=== PATIENT | female | born 1945 | race Caucasian/White ===

== ENCOUNTER 2016-09-11 14:04 | Inpatient (IN) | payer OTHER ==
[~2016-09-11] VITALS: Ht 167.6 cm; Wt 85.6 kg
[~2016-09-11 14:04] MED LIST: ACIFEX; ALBUTEROL2.5 MG/3 M IN; CARDIZEM C1 PO; FLORADIL; HYDRALAZINE HCL10 MG PO; PREVASTATIN; SINGULAIR10 MG PO; SYNTHROID25 MCG PO; SYNTHROID50 MCG PO
--- NOTE | 2016-09-11 16:32 | ED ORDER SUMMARY ---
..... Patient: LATISHA BARKSDALE I OrderSheet [facility] VisitID: [id number] [address] [place] [address] 71y, F Registration Date/Time: 09/11/2016 ORDER SHEET Weight: 81.6 kg (stated) Allergies: Beta blockers-severe weakness , Demerol, LIsinopril, Norvasc, Sulfa Drugs GENERAL ORDERS: Chest 2V Urgent (14:21 09/11/2016 DDean R.N. per protocol) (Ack 14:23 LMuller) (15:02 DDean R.N.) CBC w Diff Urgent (14:46 09/11/2016 Byron NATION) (Ack 14:51 LMuller) (15:38 DDean R.N.) CMP Urgent (14:46 09/11/2016 Byron NATION) (Ack 14:51 LMuller) (15:38 DDean R.N.) UA-Culture if indicated Urgent (14:46 09/11/2016 Byron NATION) (Ack 14:51 LMuller) (Cancelled: Unable to [id number] DDean R.N.) BNP Urgent (14:46 09/11/2016 Byron NATION) (Ack 14:51 LMuller) (15:38 DDean R.N.) EKG - ER Repeat Stat (16:48 09/11/2016 Byron NATION) (16:55 DDean R.N.) Troponin-I Urgent (17:17 09/11/2016 Byron NATION) (17:28 LMuller) Nebulizer (HHN SALINE 3 ML X 4) Stat (17:53 09/11/2016 Byron NATION) (18:52 DDean R.N.) MEDICATION ORDERS: DuoNeb Neb Tx 1 unit dose (NOW) (14:32 09/11/2016 Byron NATION) (14:45 JZiglar) Albuterol Neb Tx 5 mg (NOW, HHN) (14:56 09/11/2016 Byron NATION) (Ack 15:03 DDean R.N.) (17:53 JZiglar) Albuterol Neb Tx 2.5 mg (NOW, HHN) (17:36 09/11/2016 Byron NATION) (19:01 DDean R.N.) IV FLUIDS: Solu-MEDROL IV 125 mg (NOW) (14:45 09/11/2016 Byron NATION) (Ack 15:03 DDean R.N.) (16:20 DDean R.N.) IV NS : initial bolus none -, then 250 mL/hr for 3h (NOW); Urgent (14:46 09/11/2016 Byron NATION) (Ack 15:03 DDean R.N.) (16:40 DDean R.N.) Diltiazem IV 0.25 mg/kg (NOW) (16:02 09/11/2016 Byron NATION) (16:18 DDean R.N.) Diltiazem Drip IV : initial bolus 30 MG, then 5 mg/hr for X1 (NOW); Urgent (16:27 09/11/2016 Byron NATION) (16:29 DDean R.N.) LORazepam IV 0.5 mg (HIGH ALERT MEDICATION, NOW) (17:07 09/11/2016 DDean R.N. verbal order read back to Byron NATION) (17:07 DDean R.N.) Diltiazem IV 25 mg (NOW) (17:16 09/11/2016 Byron NATION) (18:04 DDean R.N.) LORazepam IV 0.5 mg (NOW) (17:37 09/11/2016 Byron NATION) (18:03 DDean R.N.) ORDER SHEET NOTES: [Electronically signed by Zaria Gray R.N. (20:05 09/11/2016)] [Electronically signed by Sang Howard MD (22:42 09/11/2016)] [Electronically locked/signed by Zaria Gray R.N. (20:05 09/11/2016)]
--- NOTE | 2016-09-11 16:32 | ED CLINICAL REPORT ---
Clinical Report - Physicians/Mid Levels [facility] [address] [place] [address] 09/11/2016 14:05 Patient: LATISHA BARKSDALE I Time Seen: 14:40. Arrived- By private vehicle. HISTORY OF PRESENT ILLNESS Chief Complaint: HISTORY OF CHRONIC OBSTRUCTIVE PULMONARY DISEASE. This started several days ago and is still present and worsening. It was gradual in onset. The dyspnea is described as moderate (to severe). The dyspnea is worsened by exertion. The patient has had sputum production, a cough, chest discomfort, wheezing and dyspnea on exertion. She has had mild anxiety. No fever, chills, chest pain, foot swelling or tingling. No numbness. Similar symptoms previously: Many times. REVIEW OF SYSTEMS The patient has had fever, a cough and difficulty breathing. No decreased vision, ear pain, sore throat, pedal edema or abdominal pain. No black stools, bloody stools, diarrhea, nausea or urinary frequency. No skin rash, diabetic symptoms or difficulty with urination. PAST HISTORY PCP: Dr Dionisio García SANJANA PROBLEMS: Atrial Fibrillation. Hypothyroidism. Asthma. Hypertension. ADDITIONAL SURGERIES: None. SOCIAL HISTORY Former smoker. ADDITIONAL NOTES The nursing notes have been reviewed. PHYSICAL EXAM Vital Signs: 09/11/2016 19:28 BP: 132/56. HR: 122. RR: 31. O2 saturation: 95%. Pain level now: 0. 09/11/2016 19:10 BP: 118/74. HR: 133. RR: 26. O2 saturation: 94%. Pain level now: 0. 09/11/2016 18:06 BP: 133/79. HR: 110. RR: 30. O2 saturation: 97%. Pain level now: 0. 09/11/2016 17:11 BP: 138/92. HR: 109. RR: 24. O2 saturation: 95%. Pain level now: 0. 09/11/2016 16:52 BP: 145/63. HR: 118. RR: 26. O2 saturation: 96%. Pain level now: 0. 09/11/2016 16:37 BP: 155/89. HR: 118. RR: 26. O2 saturation: 97%. Pain level now: 0. 09/11/2016 16:10 BP: 149/97. HR: 130. RR: 26. O2 saturation: 96%. Pain level now: 0. 09/11/2016 15:50 BP: 176/66. HR: 161. RR: 26. O2 saturation: 95%. 09/11/2016 15:00 BP: 177/84. HR: 84. RR: 24. O2 saturation: 100%. Pain level now: 0. 09/11/2016 14:30 BP: 191/84. HR: 84. RR: 24. O2 saturation: 95%. Pain level now: 0. 09/11/2016 14:10 BP: 186/107. HR: 92. RR: 24. O2 saturation: 90%. Temp: 98 F. Pain level now: 0/10. Appearance: Alert. Patient in moderate distress. Eyes: Eyes normal inspection. ENT: Pharynx normal. Neck: No jugular venous distention. CVS: Normal heart rate and rhythm. Respiratory: No respiratory distress. Prolonged expirations. Decreased air movement. Wheezing present. No accessory muscle use, rales or rhonchi. Abdomen: Soft and nontender. Skin: Skin warm. Normal skin color. Extremities: Extremities exhibit normal ROM. No lower extremity edema. LABS, X-RAYS, AND EKG EKG: Rate: 162. Atrial fibrillation. Normal QRS complex. Normal axis. Moderate ST depression in lead II, III, aVF, V4, V5 and V6. EKG #2: Rate: 114. Atrial fibrillation. Normal QRS complex. Normal axis. Non-specific ST segment / T wave abnormalities. ST sagging much improved. Chest X-ray: Hyperinflation present. Flattening of the hemidiaphragm. (PROCEDURE: XR CHEST 2 VIEW INDICATION: SHORTNESS OF BREATH, TECHNIQUE: PA and lateral view. COMPARISON: Chest x-ray 04/29/2016 and 11/08/2009. FINDINGS: Hyperinflation but lungs are clear. Cardiovascular structures are normal. Large hiatal hernia. Old mild mid thoracic spine compression fracture. IMPRESSION: 1. Large hiatal hernia 2. Hyperinflation Electronically Final signed by:Chino Navarro MD 09/11/2016 5:32:57 PM). No infiltrate or pneumothorax. The X-rays were independently viewed by me. Laboratory Tests: CBC w Diff: (SANDY: 09/11/2016 14:20) ( [facility] 09/11/2016 15:54) Final results Test Result Flag Units (Reference) WHITE BLOOD COUNT 5.3 K/uL (4.5-11.5) RED BLOOD COUNT 4.74 M/uL (4.00-5.20) HEMOGLOBIN 13.2 gm/dL (12.0-16.0) HEMATOCRIT 41.0 % (36.0-46.0) MEAN CELL VOLUME 87 fL (80-100) MEAN CORPUSCULAR HGB 28 pg (26-34) MEAN CORPUSCULAR HGB CONC 32 g/dL (31-37) RED CELL DISTRIBUTION WIDTH 14.8 % (11.6-14.8) PLATELET COUNT 168 K/uL (150-400) NEUTROPHIL % 77.8 H % (50-75) LYMPH % 10.4 L % (25-40) MONO % 10.9 % (3-14) EOSINOPHIL % 0.3 % (0-4) BASOPHIL % 0.6 % (0-2) Troponin-I: (SANDY: 09/11/2016 15:24) ( [facility] 09/11/2016 17:55) Final results Test Result Flag Units (Reference) TROPONIN I <0.05 ng/mL (0.00-1.5) TROPONIN REFERENCE RANGE:<0.1 NEGATIVE0.1-1.5 INDETERMINANT>1.5 POSITIVE BNP: (SANDY: 09/11/2016 14:20) ( [facility] 09/11/2016 16:21) Final results Test Result Flag Units (Reference) B-TYPE NATRIURETIC PEPTIDE 283 H pg/ml (5-100) CMP: (SANDY: 09/11/2016 14:20) ( [facility] 09/11/2016 16:15) Final results Test Result Flag Units (Reference) GLUCOSE 117 H mg/dL (70-110) BUN 9 mg/dL (7-18) CREATININE 1.0 mg/dL (0.6-1.3) Estimated GFR 58.09 mL/min Estimated GFR- >60 mL/min Note: Persistent reduction over 3 months in eGFR<60 mL/min/1.73 m2 defines CKD. Patients with eGFR values>=60 mL/min/1.73 m2 may also have CKD if evidence ofpersistent proteinuria. Additional information may be foundat www.[email or web address].org. SODIUM 141 mmol/L (136-145) POTASSIUM 3.7 mmol/L (3.5-5.1) CHLORIDE 103 mmol/L (98-107) CARBON DIOXIDE 29 mmol/L (21-32) CALCIUM 9.0 mg/dL (8.5-10.1) TOTAL PROTEIN 7.4 g/dL (6.4-8.2) ALBUMIN 3.9 g/dL (3.3-5.0) BILIRUBIN, TOTAL 0.4 mg/dL (0.0-1.0) ALKALINE PHOSPHATASE 119 H U/L (46-116) AST (SGOT) 19 U/L (15-37) ALT (SGPT) 26 U/L (12-78) . PROGRESS AND PROCEDURES Course of Care: Albuterol and solumedrol initially given. Pt developed AF wirh RVR First diltiazem 20 mg bolus given. HR slowed from 160 to 120 16:28 09/11/16. Second diltiazem 30 mg bolus and drip 5 mg per hour given. HR slowed to about 120 again. 17:16 09/11/16. 3rd diltiazem 30 mg bolus and drip increased 10 mg per hour drip. 17:37 09/11/16. Cough and dyspnea increase. Treated with 4th HHN and nebulized saline and lorazepam with partial relief and definite subjective improvement. I discussed the patient with Dr Garcia who agrees to admit her. We will admit to ICU to allow titration of diltiazem. 18:04 09/11/16. HR down to 114, ST changes normalized. Troponin is negative. Critical care performed (40 minutes). Time includes: direct patient care, patient reassessment, coordination of patient care, interpretation of data (laboratory data, pulse oximetry and chest xrays), review of patient's medical records, medical consultation and documentation of patient care- see progress notes. Disposition orders written. CLINICAL IMPRESSION Clinical picture does not suggest pneumonia, pneumothorax, pulmonary edema, respiratory failure or angina. Clinical picture does not suggest myocardial infarction. ACUTE EXACERBATION OF COPD ATRIAL FIBRILLATION WITH RVR. (Electronically signed by Sang Howard MD 09/11/2016 22:42)
--- NOTE | 2016-09-11 16:32 | ED NURSING NOTES ---
Clinical Report - Nurses [facility] [address] [place] [address] 09/11/2016 14:05 Patient: LATISHA BARKSDALE I TRIAGE Triage time 1410. Acuity: LEVEL 3. Chief Complaint: SHORTNESS OF BREATH, DIFFICULTY BREATHING and WHEEZING. --14:25 Zaria Gray R.N. 14:10 09/11/16. BP: 186/107. HR: 92. RR: 24. O2 saturation: 90% on room air. Temp: 98 F. Pain level now: 0/10. Additional comments: 2L NC . --14:25 Zaria Gray R.N. Weight: 81.6 kg stated. Height/Length: 66 inches Per Patient. BMI: 29. --14:17 Zaria Gray R.N. Medications Albuterol MDI 2 puffs Qid, last dose 1400. Belladonna oral. Diltiazem HCl Oral 180 mg, daily. LORazepam Oral 1 mg, at bedtime as needed, last dose last nighty . Omeprazole Oral 40 mg, daily. Prevastatin 1/2 tab daily . Singulair Oral, daily. Synthroid Oral 50 mcg, daily. --14:23 Zaria Gray R.N. The following entry was struck and corrected by Zaria Gray R.N., 14:25 (09/11/16) Reason for correction - other(correction). <<STRICKEN ENTRY-- Albuterol MDI 2 puffs Qid. --14:23 Zaria Gray R.N. --END STRIKE>>. Allergies Beta blockers-severe weakness . Demerol. LIsinopril.(Anaphylaxis) Norvasc. (weakness) Sulfa Drugs. --14:23 Zaria Gray R.N. History Arrived by private vehicle. Historian: patient. Accompanied by family. Primary physician ([facility]). Onset. (3 days, starting to cough up yellow sputum). She has had fever, a cough, wheezing and chest pain. ( "Just feel like my lungs are only expanding half way"). SOCIAL HX: Smoker- current status unknown (quit 25 years ago). No alcohol use. --14:25 Zaria Gray R.N. PROBLEMS: Atrial Fibrillation. Hypothyroidism. Atrial arrhythmia. Asthma. Hypertension. --14:18 Zaria Gray R.N. ADDITIONAL SURGERIES: None. --14:18 Zaria Gray R.N. Interventions ID band on patient. To treatment room. --14:25 Zaria Gray R.N. PHYSICAL ASSESSMENT 14:10. Ambulatory to room. Patient gowned. GENERAL / NEURO / PSYCH: Alert. Oriented X 4. Appears in no acute distress. RESPIRATORY: Moderate respiratory distress. The patient can speak in full sentences. Cough. Wheezing present. CVS: Capillary refill less than 2 seconds. GI / : Abdomen soft. SKIN: Skin is warm and dry. --14:27 Zaria Gray R.N. NURSING PROGRESS NOTES 14:10. Oxygen administered. Patient gowned. Head of bed elevated. Reassurance given. Patient identifiers checked. Call light placed in reach. Side rails up. Bed placed in lowest position. Patient ready for evaluation- chart flagged. Care transferred. --14:26 Zaria Gray R.N. 14:40 09/11/2016 Duoneb (Ipratropium-Albuterol) Neb TX Nebulizer 1 unit dose given. Given by the respiratory therapist. Allergies verified and confirmed 5 rights. Bryon Disla --14:45 Bryon Disla 15:05 09/11/2016 Site #1 started via IV in the left hand with an 24g angiocath, with aseptic technique and good blood return; two attempts. Blood drawn: rainbow set and cultures x1. Labeled in the presence of the patient and sent to the lab. Saline lock flushed with 10 mL saline. --15:39 Zaria Gray R.N. 14:30 09/11/16. BP: 191/84. HR: 84. RR: 24. O2 saturation: 95% on nasal cannula at 2 liters/minute. Temp: deferred. Pain level now: 0/10. --15:56 Zaria Gray R.N. 15:00 09/11/16. BP: 177/84. HR: 84. RR: 24. O2 saturation: 100%. Temp: deferred. Pain level now: 0/10. Additional comments: on nebulizer. --15:58 Zaria Gray R.N. 15:20. Patient transported to radiology by stretcher with tech. --15:58 Zaria Gray R.N. 15:32. Patient returned from radiology by stretcher with tech. --15:59 Zaria Gray R.N. 15:45. ( Pt had sudden increased in heart rate started, denies pain. ERMD notified, EKG done, 2nd IV started). --15:59 Zaria Gray R.N. 15:59 09/11/16. BP: 176/66. HR: 161. RR: 26. O2 saturation: 95%. Pain level now 0/10. --16:00 Zaria Gray R.N. 15:59. EKG time: (1559). EKG was ordered, performed by a tech and shown to the ED physician. done by MELVIN Lewis. --16:16 Zaria Gray R.N. 16:10 09/11/16. BP: 149/97. HR: 130. RR: 26. O2 saturation: 96% on nasal cannula at 2 liters/minute. Temp: deferred. Pain level now: 0/10. --16:17 Zaria Gray R.N. 15:10 09/11/2016 Started bag #1 1000 mL IV Fluids IV NS (Saline); at 250 mL/hr over 4 hour(s) via site #1 via IV pump. IV patency established. IV site checked: no pain, redness, or swelling. IV flushed thoroughly pre- and post-medication administration. --16:40 Zaria Gray R.N. 15:45 09/11/2016 SOLU-MEDROL (MethylPREDNISolone Sodium Succ) IVP 125 mg given over 1 minute(s) via site #1. IV patency established. IV site checked: no pain, redness, or swelling. IV flushed thoroughly pre- and post-medication administration. IVP given by RN. --16:20 Zaria Gray R.N. 15:57 09/11/2016 Site #2 started via IV in the right forearm with an 18g angiocath; one attempt. Saline lock flushed with 10 mL saline (DREW Sifuentes). --15:57 Zaria Gray R.N. 16:05 09/11/2016 Diltiazem IVP 20 mg given over 3 minute(s) via site #2. IV patency established. IV site checked: no pain, redness, or swelling. IV flushed thoroughly pre- and post-medication administration. IVP given by RN. --16:18 Zaria Gray R.N. 16:29 09/11/2016 Diltiazem * IVP 30mg --16:29 Zaria Gray R.N. 16:37 09/11/16. BP: 155/89. HR: 118. RR: 26. O2 saturation: 97% on nasal cannula at 4 liters/minute. Temp: deferred. Pain level now: 0/10. --16:38 Zaria Gray R.N. 16:52 09/11/16. BP: 145/63. HR: 118. RR: 26. O2 saturation: 96% on nasal cannula at 2 liters/minute. Pain level now: 0/10. Additional comments: friend leaving to take care of horses and dogs, pt very upset about having to be admitted . --16:54 Zaria Gray R.N. 16:46 09/11/2016 diltiazem drip * Drip IV 5mg --16:56 Zaria Gray R.N. 17:02 09/11/2016 Lorazepam (LORazepam) IVP 0.5 mg given over 1 minute(s) via site #1. IV patency established. IV site checked: no pain, redness, or swelling. IV flushed thoroughly pre- and post-medication administration. IVP given by RN. --17:07 Zaria Gray R.N. 17:06 09/11/2016 Diltiazem drip Drip IV via IV site #0 Rate Changed: bag #1 increased to 10 mg/hr via IV pump. IV patency established. IV site checked: no pain, redness, or swelling. IV flushed thoroughly. --17:11 Zaria Gray R.N. 17:11 09/11/16. BP: 138/92. HR: 109. RR: 24. O2 saturation: 95%. Temp: deferred. Pain level now: 0/10. --17:13 Zaria Gray R.N. 17:40 09/11/2016 Lorazepam (LORazepam) IVP 0.5 mg given over 1 minute(s) via site #2. Sedative warning given to the patient's aquatic director. IV patency established. IV site checked: no pain, redness, or swelling. IV flushed thoroughly pre- and post-medication administration. IVP given by RN. --18:03 Zaria Gray R.N. 17:40 09/11/2016 Albuterol Neb TX Nebulizer 2.5 mg given. Given by the respiratory therapist. --19:01 Zaria Gray R.N. 17:52 09/11/2016 Albuterol Neb TX Nebulizer 1 unit dose given. Given by the respiratory therapist. Allergies verified and confirmed 5 rights. Bryon Disla --17:53 Bryon Disla 17:35. ( pt sitting on side of the bed, anxious, having noisy respirations , ERMD notified, additional ativan ordered). --18:02 Zaria Gray R.N. 17:45. ( Pt up to [facility], unable to void , back on bed. breathing slightly better). --18:02 Zaria Gray R.N. 17:52 09/11/2016 Diltiazem IVP 25 mg given over 3 minute(s) via site #2. IV patency established. IV site checked: no pain, redness, or swelling. IV flushed thoroughly pre- and post-medication administration. IVP given by RN. --18:04 Zaria Gray R.N. 17:55. ( HR down to 102-112, additional EKG performed to check on underlying rhythm). --18:05 Zaria Gray R.N. 18:05 09/11/16. BP: 133/79. HR: 110. RR: 30. O2 saturation: 97% on nasal cannula. Temp: deferred. Pain level now: 0/10. --18:06 Zaria Gray R.N. late entry - 18:00. ( RT has mask on pt with NS mist to loosen sputum). --18:07 Zaria Gray R.N. 18:30 RT tx complete. mask taken off pt. 3L NC placed back on pt. Pt up to [facility] again to attempt to void, Pt unable. --18:49 Zaria Gray R.N. 18:45 pt sitting on side of bed, talking with friend on phone. taking sips of water. --18:49 Zaria Gray R.N. 18:59 09/11/2016 IV Fluids IV NS Continued: upon admission at the rate of 250 mL/hr. 200 mL remaining bag #1. IV patency established. IV site checked: no pain, redness, or swelling. IV flushed thoroughly. --18:59 Zaria Gray R.N. 19:00 09/11/2016 Diltiazem drip Drip IV Continued: upon admission at the rate of 10 gm/hr. 225 mL remaining bag #1. IV patency established. IV site checked: no pain, redness, or swelling. IV flushed thoroughly. --19:00 Zaria Gray R.N. 19:01 09/11/2016 Site #[address] upon transfer. Flushed; flushes easily. --19:02 Zaria Gray R.N. 19:03 09/11/2016 Site #[address] upon transfer; patent. Good blood return present (iv fluids and diltiazem drip cont to infuse upon admission). --19:03 Zaria Gray R.N. 19:10 09/11/16. BP: 118/74. HR: 133. RR: 26. O2 saturation: 94% on room air. Temp: deferred. Pain level now: 0/10. --19:11 Zaria Gray R.N. 19:16 09/11/16. ( pt sitting on side of bed, c/o difficulty breathing, but also attempting to call friend on cell phone). --19:16 Zaria Gray R.N. 19:28 09/11/16. ( report called to CCU, pt still attempting to call friend on phone. Pt still anxious, but breathing seems to be better). --19:28 Zaria Gray R.N. DISPOSITION / DISCHARGE 19:34 09/11/16. Condition at departure: improved. Admitted to the Critical Care Unit. Transported via stretcher by nurse with IV and O2. Report was given. (Tatyana RN, CCU RN). RANJANA COMA SCORE: Ranjana Coma Scale: 15- eyes open spontaneously (4); best verbal response- oriented x 4 (5); best motor response- obeys commands (6). --19:34 Zaria Gray R.N. 19:28 09/11/16. BP: 132/56. HR: 122. RR: 31. O2 saturation: 95% on nasal cannula at 2 liters/minute. Temp: deferred. Pain level now: 0/10. Additional comments: pt taking sips of fluids. --19:34 Zaria Gray R.N. Locked/Released at 09/11/2016 20:05 by Zaria Gray R.N.
--- NOTE | 2016-09-11 16:32 | ED ORDER SUMMARY ---
..... Patient: LATISHA BARKSDALE I OrderSheet [facility] VisitID: [id number] [address] [place] [address] 71y, F Registration Date/Time: 09/11/2016 ORDER SHEET Weight: 81.6 kg (stated) Allergies: Beta blockers-severe weakness , Demerol, LIsinopril, Norvasc, Sulfa Drugs GENERAL ORDERS: Chest 2V Urgent (14:21 09/11/2016 DDean R.N. per protocol) (Ack 14:23 LMuller) (15:02 DDean R.N.) CBC w Diff Urgent (14:46 09/11/2016 Byron NATION) (Ack 14:51 LMuller) (15:38 DDean R.N.) CMP Urgent (14:46 09/11/2016 Byron NATION) (Ack 14:51 LMuller) (15:38 DDean R.N.) UA-Culture if indicated Urgent (14:46 09/11/2016 Byron NATION) (Ack 14:51 LMuller) (Cancelled: Unable to [id number] DDean R.N.) BNP Urgent (14:46 09/11/2016 Byron NATION) (Ack 14:51 LMuller) (15:38 DDean R.N.) EKG - ER Repeat Stat (16:48 09/11/2016 Byron NATION) (16:55 DDean R.N.) Troponin-I Urgent (17:17 09/11/2016 Byron NATION) (17:28 LMuller) Nebulizer (HHN SALINE 3 ML X 4) Stat (17:53 09/11/2016 Byron NATION) (18:52 DDean R.N.) MEDICATION ORDERS: DuoNeb Neb Tx 1 unit dose (NOW) (14:32 09/11/2016 Byron NATION) (14:45 JZiglar) Albuterol Neb Tx 5 mg (NOW, HHN) (14:56 09/11/2016 Byron NATION) (Ack 15:03 DDean R.N.) (17:53 JZiglar) Albuterol Neb Tx 2.5 mg (NOW, HHN) (17:36 09/11/2016 Byron NATION) (19:01 DDean R.N.) IV FLUIDS: Solu-MEDROL IV 125 mg (NOW) (14:45 09/11/2016 Byron NATION) (Ack 15:03 DDean R.N.) (16:20 DDean R.N.) IV NS : initial bolus none -, then 250 mL/hr for 3h (NOW); Urgent (14:46 09/11/2016 Byron NATION) (Ack 15:03 DDean R.N.) (16:40 DDean R.N.) Diltiazem IV 0.25 mg/kg (NOW) (16:02 09/11/2016 Byron NATION) (16:18 DDean R.N.) Diltiazem Drip IV : initial bolus 30 MG, then 5 mg/hr for X1 (NOW); Urgent (16:27 09/11/2016 Byron NATION) (16:29 DDean R.N.) LORazepam IV 0.5 mg (HIGH ALERT MEDICATION, NOW) (17:07 09/11/2016 DDean R.N. verbal order read back to Byron NATION) (17:07 DDean R.N.) Diltiazem IV 25 mg (NOW) (17:16 09/11/2016 Byron NATION) (18:04 DDean R.N.) LORazepam IV 0.5 mg (NOW) (17:37 09/11/2016 Byron NATION) (18:03 DDean R.N.) ORDER SHEET NOTES: [Electronically signed by Zaria Gray R.N. (20:05 09/11/2016)] [Electronically signed by Sang Howard MD (22:42 09/11/2016)] [Electronically locked/signed by Zaria Gray R.N. (20:05 09/11/2016)]
--- NOTE | 2016-09-11 17:33 | DIAGNOSTIC IMAGING REPORT ---
PROCEDURE: XR CHEST 2 VIEW INDICATION: SHORTNESS OF BREATH, TECHNIQUE: PA and lateral view. COMPARISON: Chest x-ray 04/29/2016 and 11/08/2009. FINDINGS: Hyperinflation but lungs are clear. Cardiovascular structures are normal. Large hiatal hernia. Old mild mid thoracic spine compression fracture. IMPRESSION: 1. Large hiatal hernia 2. Hyperinflation
[2016-09-11 19:53] VITALS: BP 140/88
[2016-09-11 21:11] VITALS: BP 123/47
--- NOTE | 2016-09-11 21:44 | HISTORY AND PHYSICAL ---
ADMITTED: 09/11/2016 CHIEF COMPLAINT: 1. Shortness of breath HISTORY OF PRESENT ILLNESS: A 71-year-old female with history of asthma and atrial fibrillation with tachycardia presents with shortness of breath to the emergency department. She states she has been feeling increasing shortness of breath for a week. She thinks it may have started with "the disease that is going around." She states she had some congestion and cough, though it was not severe. She then had increasing shortness of breath. She notes she was diagnosed with a racing heart for the first time this fall when she was admitted for atrial fibrillation and tachycardia. She was placed on diltiazem, which she did not tolerate on the prescribed dose. She then switched to taking it "every other week," and then gradually went back to taking it daily. She is now at 180 mg daily, which is a smaller dose than that which was originally prescribed. Her primary physician is Dr. García at the [facility], who prescribes it for her. She also sees Dr. Hernandez, an company controller, and has seen Dr. Mathur, a milieu coordinator in the past. She states she had stress testing within the last year, which was benign. She feels her episodes of racing heart come on when she has been stressed both this fall and again this time. On asking what she was stressed about, she said, "I don't know," and then "Maybe taxes." MEDICAL/SURGICAL HISTORY: Remarkable for atrial fibrillation, hypothyroidism, atrial arrhythmia, asthma, hypertension. Chart shows history of Crohn's, in remission. Surgeries: Colonoscopy last done in 2009. No other surgeries are known. MEDICATIONS: 1. Combivent 1 puff daily. 2. Xopenex 2 puffs q.i.d. 3. Belladonna drops, dosage unknown, prescribed by her milieu coordinator at the [facility] "to stop AFib." 4. Diltiazem 180 mg p.o. daily. 5. Lorazepam 1 mg p.o. at bedtime p.r.n. The patient states she usually takes it about twice a day. 6. Omeprazole 40 mg p.o. daily. 7. Pravastatin, dosage unknown, 1/2 tablet per day. 8. Singulair 10 mg daily. 9. Synthroid 50 mcg 1 p.o. daily. 10. The patient also has in her purse a bottle of levofloxacin 500 mg. The prescription on it says once daily. She states she is taking it every other day and trying to taper off. She is not sure when it was started or why it was started. She also seemed to be unaware that it was an antibiotic. ALLERGIES: 1. BETA BLOCKERS, WHICH CAUSE SEVERE WEAKNESS FOR HER. 2. DEMEROL. 3. LISINOPRIL. 4. NORVASC. 5. SULFA DRUGS. SOCIAL HISTORY: Single, female with no children. 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 She then quit "because I couldn't keep up with it." Habits: Smoking: None; she quit 25 years ago after a [id number] history. Alcohol use: None. Drug use: None. FAMILY HISTORY: Father had an NC. Mother had cancer of the colon. The patient states she has never had either of these and has had colonoscopies in the past. REVIEW OF SYSTEMS: Neurological: The patient denies headaches, seizures, or syncope. HEENT: The patient denies blurry vision, ear pain, sore throat. She does admit to some congestion. Cardiovascular: The patient denies chest pain. She does admit to palpitations. She denies dizziness, nausea, or vomiting. Gastrointestinal: Denies nausea, vomiting, diarrhea, constipation, melena, or bright red blood per rectum. Genitourinary: Denies dysuria, hematuria, or frequency more than usual. Musculoskeletal: Denies joint swelling, joint surgeries, or joint pain. Dermatological: Denies rash, skin lesions, or sweats. PHYSICAL EXAMINATION: VITAL SIGNS: Blood pressure 186/107, pulse 92, respirations 24, SaO2 90% on room air. At the time of transfer to my care, heart rate was 150 and the patient was on a Diltiazem drip. GENERAL: Well-developed, well-nourished, elderly female, somewhat anxious, talking loquaciously. HEENT: Clear. NECK: Supple without adenopathy or thyromegaly. CHEST: Positive rhonchi and wheeze bilaterally. HEART: Regular rate and rhythm, tachycardic. ABDOMEN: Positive bowel sounds. Soft, nontender, without hepatosplenomegaly or masses. BACK: Straight without CVA tenderness. EXTREMITIES: Without cyanosis, clubbing, or edema. NEUROLOGIC: Cranial nerves II-XII intact and symmetric. Motor and sensory grossly normal. GENITAL/RECTAL/BREASTS: Deferred. LAB/IMAGING: WBC 5.3, hemoglobin 13.2, hematocrit 41, platelets 168. Troponin less than 0.05. BNP 283. Glucose 117, BUN 9, creatinine 1.0, sodium 141, potassium 3.7, chloride 103. Total bilirubin 0.4, alkaline phosphatase 119, AST 19, ALT 26. Chest x-ray is obtained and shows no infiltrate. Hyperinflation is noted. Hiatal hernia is noted. Old midthoracic spine compression fracture noted. EKG shows atrial fibrillation with rapid ventricular response. IMPRESSION: 1. Asthma, acute exacerbation, probably secondary to bronchitis. 2. Probable chronic obstructive pulmonary disease. 3. Atrial fibrillation with rapid ventricular response. 4. Gastroesophageal reflux disease/hiatal hernia. 5. Anxiety disorder. 6. Hypothyroidism. 7. Hypertension. 8. Hyperlipidemia. PLAN: Admit to [facility] for control of heart rate with intravenous diltiazem and close monitoring of cardiac status. Nebulized treatment for asthma exacerbation. Intravenous steroids for asthma exacerbation. Will also initiate intravenous antibiotics as I suspect this underlies the infection and it is difficult to be sure as she has been on levofloxacin intermittently. Differential diagnosis includes viral illness. Elevated BNP also shows an element of congestive heart failure, which is a new diagnosis for this patient. We will obtain echocardiogram when available and monitor BMP.
--- NOTE | 2016-09-11 21:44 | HISTORY AND PHYSICAL ---
ADMITTED: 09/11/2016 CHIEF COMPLAINT: 1. Shortness of breath HISTORY OF PRESENT ILLNESS: A 71-year-old female with history of asthma and atrial fibrillation with tachycardia presents with shortness of breath to the emergency department. She states she has been feeling increasing shortness of breath for a week. She thinks it may have started with "the disease that is going around." She states she had some congestion and cough, though it was not severe. She then had increasing shortness of breath. She notes she was diagnosed with a racing heart for the first time this fall when she was admitted for atrial fibrillation and tachycardia. She was placed on diltiazem, which she did not tolerate on the prescribed dose. She then switched to taking it "every other week," and then gradually went back to taking it daily. She is now at 180 mg daily, which is a smaller dose than that which was originally prescribed. Her primary physician is Dr. García at the [facility], who prescribes it for her. She also sees Dr. Hernandez, an debt collection specialist, and has seen Dr. Mathur, a group practice pediatrician in the past. She states she had stress testing within the last year, which was benign. She feels her episodes of racing heart come on when she has been stressed both this fall and again this time. On asking what she was stressed about, she said, "I don't know," and then "Maybe taxes." MEDICAL/SURGICAL HISTORY: Remarkable for atrial fibrillation, hypothyroidism, atrial arrhythmia, asthma, hypertension. Chart shows history of Crohn's, in remission. Surgeries: Colonoscopy last done in 2009. No other surgeries are known. MEDICATIONS: 1. Combivent 1 puff daily. 2. Xopenex 2 puffs q.i.d. 3. Belladonna drops, dosage unknown, prescribed by her group practice pediatrician at the [facility] "to stop AFib." 4. Diltiazem 180 mg p.o. daily. 5. Lorazepam 1 mg p.o. at bedtime p.r.n. The patient states she usually takes it about twice a day. 6. Omeprazole 40 mg p.o. daily. 7. Pravastatin, dosage unknown, 1/2 tablet per day. 8. Singulair 10 mg daily. 9. Synthroid 50 mcg 1 p.o. daily. 10. The patient also has in her purse a bottle of levofloxacin 500 mg. The prescription on it says once daily. She states she is taking it every other day and trying to taper off. She is not sure when it was started or why it was started. She also seemed to be unaware that it was an antibiotic. ALLERGIES: 1. BETA BLOCKERS, WHICH CAUSE SEVERE WEAKNESS FOR HER. 2. DEMEROL. 3. LISINOPRIL. 4. NORVASC. 5. SULFA DRUGS. SOCIAL HISTORY: Single, female with no children. 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 Alcohol use: None. Drug use: None. FAMILY HISTORY: Father had an ND. Mother had cancer of the colon. The patient states she has never had either of these and has had colonoscopies in the past. REVIEW OF SYSTEMS: Neurological: The patient denies headaches, seizures, or syncope. HEENT: The patient denies blurry vision, ear pain, sore throat. She does admit to some congestion. Cardiovascular: The patient denies chest pain. She does admit to palpitations. She denies dizziness, nausea, or vomiting. Gastrointestinal: Denies nausea, vomiting, diarrhea, constipation, melena, or bright red blood per rectum. Genitourinary: Denies dysuria, hematuria, or frequency more than usual. Musculoskeletal: Denies joint swelling, joint surgeries, or joint pain. Dermatological: Denies rash, skin lesions, or sweats. PHYSICAL EXAMINATION: VITAL SIGNS: Blood pressure 186/107, pulse 92, respirations 24, SaO2 90% on room air. At the time of transfer to my care, heart rate was 150 and the patient was on a Diltiazem drip. GENERAL: Well-developed, well-nourished, elderly female, somewhat anxious, talking loquaciously. HEENT: Clear. NECK: Supple without adenopathy or thyromegaly. CHEST: Positive rhonchi and wheeze bilaterally. HEART: Regular rate and rhythm, tachycardic. ABDOMEN: Positive bowel sounds. Soft, nontender, without hepatosplenomegaly or masses. BACK: Straight without CVA tenderness. EXTREMITIES: Without cyanosis, clubbing, or edema. NEUROLOGIC: Cranial nerves II-XII intact and symmetric. Motor and sensory grossly normal. GENITAL/RECTAL/BREASTS: Deferred. LAB/IMAGING: WBC 5.3, hemoglobin 13.2, hematocrit 41, platelets 168. Troponin less than 0.05. BNP 283. Glucose 117, BUN 9, creatinine 1.0, sodium 141, potassium 3.7, chloride 103. Total bilirubin 0.4, alkaline phosphatase 119, AST 19, ALT 26. Chest x-ray is obtained and shows no infiltrate. Hyperinflation is noted. Hiatal hernia is noted. Old midthoracic spine compression fracture noted. EKG shows atrial fibrillation with rapid ventricular response. IMPRESSION: 1. Asthma, acute exacerbation, probably secondary to bronchitis. 2. Probable chronic obstructive pulmonary disease. 3. Atrial fibrillation with rapid ventricular response. 4. Gastroesophageal reflux disease/hiatal hernia. 5. Anxiety disorder. 6. Hypothyroidism. 7. Hypertension. 8. Hyperlipidemia. PLAN: Admit to [facility] for control of heart rate with intravenous diltiazem and close monitoring of cardiac status. Nebulized treatment for asthma exacerbation. Intravenous steroids for asthma exacerbation. Will also initiate intravenous antibiotics as I suspect this underlies the infection and it is difficult to be sure as she has been on levofloxacin intermittently. Differential diagnosis includes viral illness. Elevated BNP also shows an element of congestive heart failure, which is a new diagnosis for this patient. We will obtain echocardiogram when available and monitor BMP.
[2016-09-11 22:12] VITALS: BP 124/60
--- NOTE | 2016-09-11 22:42 | ED DISCHARGE INSTRUCTIONS ---
Patient: LATISHA BARKSDALE I General Instructions [facility] VisitID: [id number] [address] [place] [address] 71y, F Registration Date/Time: 09/11/2016 ACUTE EXACERBATION OF COPD ATRIAL FIBRILLATION WITH RVR. (Electronically signed by Sang Howard MD 09/11/2016 22:42)
--- NOTE | 2016-09-11 22:42 | ED MAR SUMMARY ---
..... Medication Administration Record [facility] [address] [place] [address] Patient: LATISHA BARKSDALE I Visit ID: [id number] 71y, F Weight: 81.6 kg Height/Length: 66 in BMI: 29 ALLERGIES: Beta blockers-severe weakness , Demerol, LIsinopril, Norvasc, Sulfa Drugs Given 14:40 09/11/2016 Bryon Disla, Medication Administered: DUONEB [NEB TX] (IPRATROPIUM-ALBUTEROL), Dose: 1 unit dose Nebulizer Neb TX. Medication Ordered: DuoNeb Neb Tx 1 unit dose (NOW). Start 15:10 09/11/2016 Zaria Gray R.N., Continued Upon Admission 18:59 09/11/2016 Zaria Gray R.N. Medication Administered: IV NS (SALINE), Dose: IV Fluids over 4 hour(s), Rate: 250 mL/hr, Dispensed: 1000 mL bag, Site: #1 left hand. Medication Ordered: IV NS : initial bolus none -, then 250 mL/hr for 3h (NOW); Urgent. Given 15:45 09/11/2016 Zaria Gray R.N. Medication Administered: SOLU-MEDROL [IVP] (METHYLPREDNISOLONE SODIUM SUCC), Dose: 125 mg IVP over 1 minute(s), Site: #1 left hand. Medication Ordered: Solu-MEDROL IV 125 mg (NOW). Given 16:05 09/11/2016 Zaria Gray R.N. Medication Administered: DILTIAZEM [IVP], Dose: 20 mg IVP over 3 minute(s), Site: #2 right forearm. Medication Ordered: Diltiazem IV 0.25 mg/kg (NOW). Given 16:29 09/11/2016 Zaria Gray R.N. Medication Administered: Diltiazem *, Dose: 30mg * IVP. Medication Ordered: Diltiazem Drip IV : initial bolus 30 MG, then 5 mg/hr for X1 (NOW); Urgent. Start 16:46 09/11/2016 Zaria Gray R.N., Continued Upon Admission 19:00 09/11/2016 Zaria Gray R.N. Medication Administered: diltiazem drip *, Dose: 5mg * Drip IV. Medication Ordered: Diltiazem Drip IV : initial bolus 30 MG, then 5 mg/hr for X1 (NOW); Urgent. Given 17:02 09/11/2016 Zaria Gray R.N. Medication Administered: LORAZEPAM [IVP] (LORAZEPAM), Dose: 0.5 mg IVP over 1 minute(s), Site: #1 left hand. Medication Ordered: LORazepam IV 0.5 mg (HIGH ALERT MEDICATION, NOW). Given 17:40 09/11/2016 Zaria Gray R.N. Medication Administered: ALBUTEROL [NEB TX], Dose: 2.5 mg Nebulizer Neb TX. Medication Ordered: Albuterol Neb Tx 2.5 mg (NOW, HHN). Given 17:40 09/11/2016 Zaria Gray R.N. Medication Administered: LORAZEPAM [IVP] (LORAZEPAM), Dose: 0.5 mg IVP over 1 minute(s), Site: #2 right forearm. Medication Ordered: LORazepam IV 0.5 mg (NOW). Given 17:52 09/11/2016 Zaria Gray R.N. Medication Administered: DILTIAZEM [IVP], Dose: 25 mg IVP over 3 minute(s), Site: #2 right forearm. Medication Ordered: Diltiazem IV 25 mg (NOW). Given 17:52 09/11/2016 Bryon Disla, Medication Administered: ALBUTEROL [NEB TX], Dose: 1 unit dose Nebulizer Neb TX. Medication Ordered: Albuterol Neb Tx 5 mg (NOW, HHN).
--- NOTE | 2016-09-11 22:42 | ED MED RECONCILIATION SUMMARY ---
Patient: LATISHA BARKSDALE I Medication Reconciliation Report [facility] VisitID: [id number] [address] [place] [address] 71y, F Registration Date/Time: 09/11/2016 Weight: 81.6 kg Height/Length: 66 in. BMI: 29.0 ALLERGIES: Beta blockers-severe weakness , Demerol, LIsinopril, Norvasc, Sulfa Drugs The patient's Home Medications are listed below: THE FOLLOWING MEDICATIONS NEED TO BE RECONCILED: Albuterol MDI 2 puffs Qid, last dose: 1400 Belladonna oral Diltiazem HCl Oral 180 mg, daily LORazepam Oral 1 mg, at bedtime, last dose: last nighty Omeprazole Oral 40 mg, daily Prevastatin 1/2 tab daily Singulair Oral, daily Synthroid Oral 50 mcg, daily The source(s) of the original Home Medication information: Not obtained. The following Medications were given to the patient in the Emergency Department: Duoneb [Neb Tx] Neb TX 1 unit dose, administered: 09/11/2016 2:40:00 PM Diltiazem [IVP] IVP 20 mg, administered: 09/11/2016 4:05:00 PM SOLU-MEDROL [IVP] IVP 125 mg, administered: 09/11/2016 3:45:00 PM Diltiazem IVP 30mg, administered: 09/11/2016 4:29:00 PM IV NS IV Fluids bolus 0, then 250 mL/hr, administered: 09/11/2016 3:10:00 PM diltiazem drip Drip IV bolus 0, then 5mg, administered: 09/11/2016 4:46:00 PM Lorazepam [IVP] IVP 0.5 mg, administered: 09/11/2016 5:02:00 PM Albuterol [Neb Tx] Neb TX 1 unit dose, administered: 09/11/2016 5:52:00 PM Lorazepam [IVP] IVP 0.5 mg, administered: 09/11/2016 5:40:00 PM Diltiazem [IVP] IVP 25 mg, administered: 09/11/2016 5:52:00 PM Albuterol [Neb Tx] Neb TX 2.5 mg, administered: 09/11/2016 5:40:00 PM The following Medications were prescribed to the patient: None.
--- NOTE | 2016-09-11 22:42 | ED MED RECONCILIATION SUMMARY ---
Patient: LATISHA BARKSDALE I Medication Reconciliation Report [facility] VisitID: [id number] [address] [place] [address] 71y, F Registration Date/Time: 09/11/2016 Weight: 81.6 kg Height/Length: 66 in. BMI: 29.0 ALLERGIES: Beta blockers-severe weakness , Demerol, LIsinopril, Norvasc, Sulfa Drugs The patient's Home Medications are listed below: THE FOLLOWING MEDICATIONS NEED TO BE RECONCILED: Albuterol MDI 2 puffs Qid, last dose: 1400 Belladonna oral Diltiazem HCl Oral 180 mg, daily LORazepam Oral 1 mg, at bedtime, last dose: last nighty Omeprazole Oral 40 mg, daily Prevastatin 1/2 tab daily Singulair Oral, daily Synthroid Oral 50 mcg, daily The source(s) of the original Home Medication information: Not obtained. The following Medications were given to the patient in the Emergency Department: Duoneb [Neb Tx] Neb TX 1 unit dose, administered: 09/11/2016 2:40:00 PM Diltiazem [IVP] IVP 20 mg, administered: 09/11/2016 4:05:00 PM SOLU-MEDROL [IVP] IVP 125 mg, administered: 09/11/2016 3:45:00 PM Diltiazem IVP 30mg, administered: 09/11/2016 4:29:00 PM IV NS IV Fluids bolus 0, then 250 mL/hr, administered: 09/11/2016 3:10:00 PM diltiazem drip Drip IV bolus 0, then 5mg, administered: 09/11/2016 4:46:00 PM Lorazepam [IVP] IVP 0.5 mg, administered: 09/11/2016 5:02:00 PM Albuterol [Neb Tx] Neb TX 1 unit dose, administered: 09/11/2016 5:52:00 PM Lorazepam [IVP] IVP 0.5 mg, administered: 09/11/2016 5:40:00 PM Diltiazem [IVP] IVP 25 mg, administered: 09/11/2016 5:52:00 PM Albuterol [Neb Tx] Neb TX 2.5 mg, administered: 09/11/2016 5:40:00 PM The following Medications were prescribed to the patient: None.
--- NOTE | 2016-09-11 22:42 | ED DISCHARGE INSTRUCTIONS ---
Patient: LATISHA BARKSDALE I General Instructions [facility] VisitID: [id number] [address] [address] 71y, F Registration Date/Time: 09/11/2016 ACUTE EXACERBATION OF COPD ATRIAL FIBRILLATION WITH RVR. (Electronically signed by Sang Howard MD 09/11/2016 22:42)
--- NOTE | 2016-09-11 22:42 | ED MAR SUMMARY ---
..... Medication Administration Record [facility] [address] [place] [address] Patient: LATISHA BARKSDALE I Visit ID: [id number] 71y, F Weight: 81.6 kg Height/Length: 66 in BMI: 29 ALLERGIES: Beta blockers-severe weakness , Demerol, LIsinopril, Norvasc, Sulfa Drugs Given 14:40 09/11/2016 Broyn Disla, Medication Administered: DUONEB [NEB TX] (IPRATROPIUM-ALBUTEROL), Dose: 1 unit dose Nebulizer Neb TX. Medication Ordered: DuoNeb Neb Tx 1 unit dose (NOW). Start 15:10 09/11/2016 Zaria Gray R.N., Continued Upon Admission 18:59 09/11/2016 Zaria Gray R.N. Medication Administered: IV NS (SALINE), Dose: IV Fluids over 4 hour(s), Rate: 250 mL/hr, Dispensed: 1000 mL bag, Site: #1 left hand. Medication Ordered: IV NS : initial bolus none -, then 250 mL/hr for 3h (NOW); Urgent. Given 15:45 09/11/2016 Zaria Gray R.N. Medication Administered: SOLU-MEDROL [IVP] (METHYLPREDNISOLONE SODIUM SUCC), Dose: 125 mg IVP over 1 minute(s), Site: #1 left hand. Medication Ordered: Solu-MEDROL IV 125 mg (NOW). Given 16:05 09/11/2016 Zaria Gray R.N. Medication Administered: DILTIAZEM [IVP], Dose: 20 mg IVP over 3 minute(s), Site: #2 right forearm. Medication Ordered: Diltiazem IV 0.25 mg/kg (NOW). Given 16:29 09/11/2016 Zaria Gray R.N. Medication Administered: Diltiazem *, Dose: 30mg * IVP. Medication Ordered: Diltiazem Drip IV : initial bolus 30 MG, then 5 mg/hr for X1 (NOW); Urgent. Start 16:46 09/11/2016 Zaria Gray R.N., Continued Upon Admission 19:00 09/11/2016 Zaria Gray R.N. Medication Administered: diltiazem drip *, Dose: 5mg * Drip IV. Medication Ordered: Diltiazem Drip IV : initial bolus 30 MG, then 5 mg/hr for X1 (NOW); Urgent. Given 17:02 09/11/2016 Zaria Gray R.N. Medication Administered: LORAZEPAM [IVP] (LORAZEPAM), Dose: 0.5 mg IVP over 1 minute(s), Site: #1 left hand. Medication Ordered: LORazepam IV 0.5 mg (HIGH ALERT MEDICATION, NOW). Given 17:40 09/11/2016 Zaria Gray R.N. Medication Administered: ALBUTEROL [NEB TX], Dose: 2.5 mg Nebulizer Neb TX. Medication Ordered: Albuterol Neb Tx 2.5 mg (NOW, HHN). Given 17:40 09/11/2016 Zaria Gray R.N. Medication Administered: LORAZEPAM [IVP] (LORAZEPAM), Dose: 0.5 mg IVP over 1 minute(s), Site: #2 right forearm. Medication Ordered: LORazepam IV 0.5 mg (NOW). Given 17:52 09/11/2016 Zaria Gray R.N. Medication Administered: DILTIAZEM [IVP], Dose: 25 mg IVP over 3 minute(s), Site: #2 right forearm. Medication Ordered: Diltiazem IV 25 mg (NOW). Given 17:52 09/11/2016 Bryon Disla, Medication Administered: ALBUTEROL [NEB TX], Dose: 1 unit dose Nebulizer Neb TX. Medication Ordered: Albuterol Neb Tx 5 mg (NOW, HHN).
[2016-09-11 23:11] VITALS: BP 123/60
[2016-09-11] MEDS ORDERED: SINGULAIR10 MG PO (23:44)
[2016-09-11] MEDS ORDERED: SYNTHROID50 MCG PO (23:44)
[2016-09-11] MEDS ORDERED: PRILOSEC40 MG PO (23:47)
[2016-09-11] MEDS ORDERED: CARDIZEM C1 PO (23:48)
[2016-09-11] MEDS ORDERED: LORAZEPAM1 MG PO (23:48)
[2016-09-11] MEDS ORDERED: ALBUTEROL HFA60 DOSE IN (23:49)
[2016-09-11] MEDS ORDERED: DONNATAL (23:49)
[2016-09-12] VITALS (13 sets, daily range): BP systolic 114–175; BP diastolic 52–88
--- NOTE | 2016-09-12 07:48 | Progress Note ---
Subjective General 71yo female with anxiety admitted with acute SOB after a week of worsening URI sx. Admitted with afib and RVR controlled with diltiazem drip. Converted during night and taken off diltiazem. Required ativan for anxiety and phenergan with codeine for cough. Now lethargic, but nursing reports that she becomes suddenly very anxious and dyspneic at times. Physical Exam Vital Signs / I&Os Vital Signs Date Time Temp Pulse Resp B/P Pulse O2 O2 Flow FiO2 Ox Delivery Rate 09/12 0726 98.1 09/12 0720 72 20 119/52 99 Mask 4.0 09/12 0601 97.3 96 30 127/60 95 Mask 2.5 09/12 0551 4.0 09/12 0515 76 25 139/74 97 Nasal 2.0 Cannula 09/12 0420 79 25 130/67 96 Nasal 2.0 Cannula 09/12 0320 77 28 97 Nasal 2.0 Cannula 09/12 0304 2.0 09/12 0232 98.1 74 19 114/57 97 Nasal 2.0 Cannula 09/12 0115 86 29 94 Nasal 2.0 Cannula 09/12 0011 70 27 127/56 98 Nasal 2.0 Cannula 09/11 2311 96 34 123/60 98 Nasal 2.0 Cannula 09/11 2212 97.0 92 24 124/60 98 Nasal 2.0 Cannula 09/111 134 37 123/47 96 Nasal 2.0 Cannula 09/11 2056 2.0 09/11 1953 99.0 139 22 140/88 97 Nasal 2.0 Cannula 09/11 1750 2.0 I&O 09/11 0800 09/11 1600 09/12 0000 Intake Total Output Total Balance General Appearance Lethargic at present. Follows commands with repeated stimulation, such as breath deep, but no conversation. Cardiovascular Regular rate and rhythm Abdomen Normal bowel sounds, Soft, No tenderness Extremities No edema Skin No Rashes LAB Results Laboratory Tests 09/11 09/11 09/11 09/11 09/12 1420 1420 1446 1524 0510 Chemistry Plasma Sodium (136 - 145 mmol/L) 141 140 Plasma Potassium (3.5 - 5.1 mmol/L) 3.7 4.1 Plasma Chloride (98 - 107 mmol/L) 103 106 CO2 (Enzymatic) (21 - 32 mmol/L) 29 26 BUN (7 - 18 mg/dL) 9 14 Creatinine (0.6 - 1.3 mg/dL) 1.0 0.9 Est GFR ( Amer) (mL/min) >60 >60 Est GFR (Non-Af Amer) (mL/min) 58.09 >60 Glucose (70 - 110 mg/dL) 117 183 Plasma Calcium (8.5 - 10.1 mg/dL) 9.0 8.5 Plasma Magnesium (1.8 - 2.4 mg/dL) 1.9 Total Bilirubin (0.0 - 1.0 mg/dL) 0.4 0.3 AST (15 - 37 U/L) 19 20 ALT (12 - 78 U/L) 26 25 Alkaline Phosphatase (46 - 116 U/L) 119 102 Troponin (0.00 - 1.5 ng/mL) <0.05 B-Natriuretic Peptide (5 - 100 pg/ml) 283 Total Protein (6.4 - 8.2 g/dL) 7.4 6.2 Albumin (3.3 - 5.0 g/dL) 3.9 3.5 TSH 3rd Generation (0.30 - 3.74 uIU/mL) 0.136 Hematology WBC (4.5 - 11.5 K/uL) 5.3 4.1 RBC (4.00 - 5.20 M/uL) 4.74 4.35 Hgb (12.0 - 16.0 gm/dL) 13.2 12.2 Hct (36.0 - 46.0 %) 41.0 37.7 MCV (80 - 100 fL) 87 87 MCH (26 - 34 pg) 28 28 RDW (11.6 - 14.8 %) 14.8 15.3 Neut % (Auto) (50 - 75 %) 77.8 90.9 Lymph % (Auto) (25 - 40 %) 10.4 6.9 [place] % (Auto) (3 - 14 %) 10.9 2.1 Eos % (Auto) (0 - 4 %) 0.3 0 Baso % (Auto) (0 - 2 %) 0.6 0.1 Plt Count, EDTA (150 - 400 K/uL) 168 154 PUBS MCHC (31 - 37 g/dL) 32 33 Urines Urine Color Cancelled Urine Appearance Cancelled Urine pH Cancelled Ur Specific [place] Cancelled Urine Protein Cancelled Urine Ketones Cancelled Urine Blood Cancelled Urine Nitrite Cancelled Urine Bilirubin Cancelled Urine Urobilinogen Cancelled Ur Leukocyte Esterase Cancelled Urine RBC Cancelled Urine WBC Cancelled Ur Epithelial Cells Cancelled Urine Bacteria Cancelled Urine Glucose Cancelled 09/12 0510 Chemistry B-Natriuretic Peptide (5 - 100 pg/ml) 393 Assessment and Plan Problem List 1. Atrial fibrillation with rapid ventricular response Plan Improved with drip, weaned to po diltiazem. 2. HYPOTHYROIDISM Plan TSH low, will reduce levothyroxine. 3. COPD with acute exacerbation Plan On antibiotics. 4. ASTHMA Plan Improved with control of anxiety but now sedated. 5. CHF (congestive heart failure) Plan Worsened bnp. Will diurese gently.
[2016-09-12] MEDS ORDERED: PRAVACHOL20 MG PO (15:18)
[2016-09-12] MEDS ORDERED: ACIPHEX20 MG PO (15:19)
--- NOTE | 2016-09-12 15:24 | Provider's Discharge Care Plan ---
Problem, Goal, Plan Problem List 1. Atrial fibrillation with rapid ventricular response Goals: Improve disease control Instructions: Take meds as directed 2. GERD (gastroesophageal reflux disease) Goals: Improve disease control Instructions: Take meds as directed 3. COPD with acute exacerbation Goals: Improved health/wellness Instructions: Take meds as directed 4. CHF (congestive heart failure) Goals: Improve disease control Instructions: Take meds as directed, lOW SALT DIET 5. Hypertension Goals: Improve disease control Instructions: Take meds as directed 6. HYPERLIPIDEMIA Goals: Improve disease control Instructions: Take meds as directed 7. HYPOTHYROIDISM Goals: Improve disease control Instructions: rEDUCE LEVOTHYROXINE TO 25 MCG DAILY
[2016-09-12] MEDS ORDERED: XOPENEX CO1.25 MG/0. PO (15:28)
[2016-09-12] MEDS ORDERED: LEVOTHYROXINE25 MCG PO (15:28)
--- NOTE | 2016-09-12 16:32 | DISCHARGE SUMMARY ---
ADMIT DATE: 09/11/2016 DISCHARGE DATE: 09/12/2016 ADMITTING DIAGNOSES: 1. Asthma, acute exacerbation secondary to bronchitis 2. Chronic obstructive pulmonary disease 3. Atrial fibrillation with rapid ventricular response 4. Gastroesophageal reflux disease 5. Anxiety disorder 6. Hypothyroidism 7. Hypertension 8. Hyperlipidemia DISCHARGE DIAGNOSES: 1. Asthma, acute exacerbation secondary to bronchitis 2. Chronic obstructive pulmonary disease 3. Atrial fibrillation with rapid ventricular response 4. Gastroesophageal reflux disease 5. Anxiety disorder 6. Hypothyroidism 7. Hypertension 8. Hyperlipidemia BRIEF HISTORY: This 71-year-old female presented with increasing shortness of breath, with a 1-week-long history of URI symptomatology marked worsening on the day of admission. In the ED, she was found to have marked tachycardia with heart rate 150, in atrial fibrillation. This required diltiazem IV drip to control. She was admitted to the CCU for control of her atrial fibrillation and rapid ventricular response. HOSPITAL COURSE: The patient was admitted to the CCU. She was maintained on telemetry and a diltiazem drip. Additionally, she had marked anxiety and was given anxiolytic medications. Significant improvement in her heart rate was noted with control of anxiety. During the night, her heart rhythm converted to sinus. She was then weaned off the diltiazem drip and resumed on oral diltiazem. Her asthma was controlled during the hospital stay with Xopenex, as she related a history of difficulty tolerating albuterol due to palpitations. She also noted that her nebulizer at home was not working, and she requested a new nebulizer, as nebulized treatments worked well for her in the hospital with Xopenex. She was treated during the hospital stay are with IV Zithromax because of infection. This will be continued on discharge as well for the bronchitis, which seems to have initiated this cascade of events. Her TSH was suppressed on testing in the hospital. Therefore, her thyroid dose was decreased from 50 mcg daily to 25 mcg daily. PHYSICAL EXAMINATION: VITAL SIGNS: Stable, afebrile. HEENT: Clear. CHEST: Clear. HEART: Regular rate and rhythm with a slight expiratory wheeze, without murmur. ABDOMEN: Benign. EXTREMITIES: Without cyanosis, clubbing, or edema. DISCHARGE INSTRUCTIONS/MEDICATIONS: Disposition: Home. Discharge medications: Zithromax, 250 mg daily x4 days. Pravastatin 20 mg p.o. daily. Levothyroxine 25 mcg p.o. daily. Xopenex 1.25 mg per 0.5 mL nebulized q.i.d. Singulair 10 mg p.o. daily. Diltiazem 180 mg p.o. daily. Lorazepam 1 mg p.o. at bedtime. Belladonna alkaloids once daily. She will take omeprazole 40 mg p.o. daily. Special instructions: Light activity at home. Low-salt diet. Follow up with primary physician in 2 weeks.
[2016-09-12] MEDS ORDERED: ZITHROMAX250 MG PO (17:03)
== END 2016-09-12 18:25 | disposition home or self-care (01) | DRG 191 ==
LOC: ED SRH 14:04 → TRANS SRH 16:32 → CC SRH 20:07
PROVIDERS: ADMIT Emergency Medicine Emergency Medical Services
PROC: 3E0234Z Introduction of Serum, Toxoid and Vaccine into Muscle, Percutaneous Approach (ICD-10-PCS; principal; 2016-09-12)
DX: J44.0 Chronic obstructive pulmonary disease with (acute) lower respiratory infection (principal); J20.9 Acute bronchitis, unspecified; J44.1 Chronic obstructive pulmonary disease with (acute) exacerbation; J45.901 Unspecified asthma with (acute) exacerbation; Z87.891 Personal history of nicotine dependence; I48.91 Unspecified atrial fibrillation; I11.0 Hypertensive heart disease with heart failure; I50.9 Heart failure, unspecified; Z23 Encounter for immunization; K21.9 Gastro-esophageal reflux disease without esophagitis; K44.9 Diaphragmatic hernia without obstruction or gangrene; E78.5 Hyperlipidemia, unspecified; E03.9 Hypothyroidism, unspecified; F41.9 Anxiety disorder, unspecified
CPT/HCPCS: 29257; 90074; 90100; 90616; 91320; 92132; 92720; 93140; 95059

== ENCOUNTER 2016-09-13 10:24 | Inpatient (IN) | payer OTHER ==
[~2016-09-13] VITALS: Ht 167.6 cm; Wt 85.8 kg
[2016-09-13] VITALS (11 sets, daily range): BP systolic 122–175; BP diastolic 72–103
[~2016-09-13 10:24] MED LIST changes: +ACIPHEX20 MG PO; +ALBUTEROL HFA60 DOSE IN; +DONNATAL; +LEVOTHYROXINE25 MCG PO; +LORAZEPAM1 MG PO; +PRAVACHOL20 MG PO; +PRILOSEC40 MG PO; +XOPENEX CO1.25 MG/0. PO; +ZITHROMAX250 MG PO
--- NOTE | 2016-09-13 11:15 | DIAGNOSTIC IMAGING REPORT ---
PROCEDURE: XR CHEST 1 VIEW INDICATION: SHORTNESS OF BREATH, follow-up TECHNIQUE: Portable AP view 10:56 a.m. COMPARISON: Chest x-ray 09/11/2016 FINDINGS: Hyperinflation with decreased inspiratory effort and minor left basilar atelectasis. Right lung is clear. Heart size, mediastinum and pulmonary vessels are normal. Large hiatal hernia. Degenerative changes of the right glenohumeral joint pill IMPRESSION: 1. Hyperinflation with mild left basilar atelectasis 2. Large hiatal hernia
--- NOTE | 2016-09-13 13:06 | ED ORDER SUMMARY ---
..... Patient: LATISHA BARKSDALE I OrderSheet [facility] VisitID: [id number] [address] [place] [address] 71y, F Registration Date/Time: 09/13/2016 ORDER SHEET Weight: 90.7 kg (estimated) Allergies: Beta blockers-severe weakness , Demerol, LIsinopril, Norvasc, Sulfa Drugs GENERAL ORDERS: ABG (G) Urgent (10:31 09/13/2016 Raphael Faye) (Ack 10:41 LTapper) (12:43 HOShaughmagalie R.N.) Chest 1V Urgent (10:40 09/13/2016 Raphael Faye) (Ack 10:41 LTapper) (12:43 HOShaughmagalie R.N.) MEDICATION ORDERS: DuoNeb Neb Tx 1 unit dose (NOW) (10:09/13/2016 Raphael Faye) (10:29 HOSprince R.N.) Albuterol Neb Tx 10 mg (Continuous over an hour) (10:09/13/2016 Raphael Faye) (10:51 HOSprince R.N.) IV FLUIDS: ORDER SHEET NOTES: [Electronically signed by Agustin Blancas Dr. (21:48 09/13/2016)] [Electronically signed by Javi Cerna R.N. (19:41 09/16/2016)] [Electronically locked/signed by Javi Cerna R.N. (19:41 09/16/2016)]
--- NOTE | 2016-09-13 13:06 | ED NURSING NOTES ---
Clinical Report - Nurses [facility] [address] [place] [address] 09/13/2016 10:25 Patient: LATISHA BARKSDALE I TRIAGE Triage time 1016 AM. Chief Complaint: SHORTNESS OF BREATH, DIFFICULTY BREATHING and WHEEZING and (COPD exacerbation). Alert. No acute distress. SEPSIS SCREEN: Sepsis Screen. Negative (no infection suspected/documented). --10:22 Javi Cerna R.N. 10:16 09/13/16. BP: 170/84. HR: 97. RR: 30. O2 saturation: 100% on face mask at 15 liters/minute. Temp: 97.5 F (oral). Pain level now unable to obtain due to patient condition. --10:22 Javi Cerna R.N. Acuity: LEVEL 2. --10:22 Javi Cerna R.N. Weight: 90.7 kg estimated. Height/Length: 64 inches Estimated. BMI: 34.3. --10:16 Javi Cerna R.N. Medications Albuterol MDI 2 puffs Qid, last dose 1400. Belladonna oral. Diltiazem HCl Oral 180 mg, daily. LORazepam Oral 1 mg, at bedtime as needed, last dose last nighty . Omeprazole Oral 40 mg, daily. Prevastatin 1/2 tab daily . Singulair Oral, daily. Synthroid Oral 50 mcg, daily. --10:28 Javi Cerna R.N. Allergies Beta blockers-severe weakness . Demerol. LIsinopril.(Anaphylaxis) Norvasc. (weakness) Sulfa Drugs. --10:28 Javi Cerna R.N. History Arrived by EMS. Historian: EMS and patient. This started just prior to arrival. ( Patient presents to the ED with symptoms of a COPD exacerbation, states that she became increasingly dyspneaic and called EMS. Per medics patient was seen in the ED yesterday, but was not able to fill her prescription medications yesterday, daughter was going to fill the prescriptions this morning, but patient became too short of breath and medics were called. Medics report that they administered 0.5mg Ativan IV, 125mg Soludmedrol IV, douneb, and initiated CPAP at 0925 this AM improving her SOB marginally.). The patient has had a cough and wheezing. 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 (ativan, CPAP). PAST MEDICAL HX: Chronic obstructive pulmonary disease. --10:22 Javi Cerna R.N. PROBLEMS: Atrial Fibrillation. Hypothyroidism. Atrial arrhythmia. Asthma. Hypertension. --10:28 Javi Cerna R.N. PHYSICAL ASSESSMENT To room via stretcher. GENERAL / NEURO / PSYCH: Alert. Oriented X 4. Appears in no acute distress. HEENT: Mucous membranes are pink. RESPIRATORY: Severe respiratory distress. The patient can speak one word at a time. Prominent clavicular and intercostal accessory muscle use. Decreased breath sounds. Expiratory and inspiratory bilateral wheezes diffusely. CVS: Normal sinus rhythm noted. Capillary refill less than 2 seconds. GI / : Abdomen soft and nontender. Bowel sounds within normal limits. SKIN: Skin is warm and dry. Normal skin turgor. --10:23 Javi Cerna R.N. NURSING PROGRESS NOTES EKG time: (1025 AM). EKG was performed by a tech and shown to the ED physician. --10:24 Javi Cerna R.N. 10:24 09/13/16. End tidal CO2: 40mmHg. --10:24 Javi Cerna R.N. 10:26 09/13/16. BP: 186/96. HR: 97. RR: 26. O2 saturation: 92% on nasal cannula at 4 liters/minute. --10:26 Javi Cerna R.N. 10:29 09/13/2016 Duoneb (Ipratropium-Albuterol) Neb TX Nebulizer 1 unit dose given. Given by the respiratory therapist. Allergies verified and confirmed 5 rights. --10:29 Javi Cerna R.N. 10:51 09/13/2016 Albuterol Neb TX Nebulizer 10 mg given. Given by the respiratory therapist. Allergies verified and confirmed 5 rights. (continuous neb). --10:51 Javi Cerna R.N. 13:08 09/13/16. BP: 161/78. HR: 101. RR: 22. O2 saturation: 97% on nasal cannula at 3 liters/minute. RN notified. --13:09 Javi Cerna R.N. The patient is calm and resting quietly. Overall patient status is improved- she states feels better. RESPIRATORY: No respiratory distress. Wheezing present. CVS: Normal sinus rhythm noted. SKIN: Skin is warm and dry. Skin color within normal limits. Call light placed in reach. --14:00 Javi Cerna R.N. 13:59 09/13/16. BP: 167/71. HR: 96. RR: 22. O2 saturation: 100% on nasal cannula at 2 liters/minute. Pain level now: 0/10. --14:00 Jvai Cerna R.N. DISPOSITION / DISCHARGE Admitted to the Critical Care Unit. Transported via stretcher by nurse. Report was given to a nurse via a phone call. Report included patient's care, treatment, medications, reviewed medication reconcilliation, and condition (including any recent changes or anticipated changes). All questions were answered. Report was acknowledged and care was transferred. (Zaria). Bed obtained and ready. --14:05 Javi Cerna R.N. Locked/Released at 09/16/2016 19:41 by Javi Cerna R.N.
--- NOTE | 2016-09-13 13:06 | ED CLINICAL REPORT ---
Clinical Report - Physicians/Mid Levels [facility] [address] [place] [address] 09/13/2016 10:25 Patient: LATISHA BARKSDALE I Time Seen: 10:22; initial patient contact. Arrived- By ambulance. Historian- patient. RETURN VISIT: recently seen in this ED by another ED physician. Seen now for the same problem as before (Pt admitted to ICU on Diltiazem gtt for a fib/RVR and COPD exacerbation, left AMA overnight from ICU. Never filled meds.). HISTORY OF PRESENT ILLNESS Chief Complaint: DYSPNEA and HISTORY OF CHRONIC OBSTRUCTIVE PULMONARY DISEASE. This started yesterday and is still present and worsening. The dyspnea is severe. No improvement of dyspnea with rest, oxygen or sitting upright. The patient has had sputum production, a cough, wheezing, chills and anxiety. No fever, sweating episodes, dyspnea on exertion or chest pain or discomfort. No calf pain, foot swelling, orthopnea or palpitations. Similar symptoms previously: Many times. Recent medical care: The patient was seen recently at this facility in the emergency department. REVIEW OF SYSTEMS The patient has had a nasal discharge and sinus drainage. No fainting episodes. All systems otherwise negative, except as recorded above. PAST HISTORY Atrial Fibrillation. Hypothyroidism. Atrial arrhythmia. Asthma. Hypertension. COPD. Medications: Albuterol MDI 2 puffs Qid, last dose 1400. Belladonna oral. Diltiazem HCl Oral 180 mg, daily. LORazepam Oral 1 mg, at bedtime as needed, last dose last nighty . Omeprazole Oral 40 mg, daily. Prevastatin 1/2 tab daily . Singulair Oral, daily. Synthroid Oral 50 mcg, daily. Allergies: Beta blockers-severe weakness . Demerol. LIsinopril.(Anaphylaxis) Norvasc. (weakness) Sulfa Drugs. SOCIAL HISTORY Former smoker. No alcohol use or drug use. ADDITIONAL NOTES The nursing notes have been reviewed with agreement regarding the chief complaint, PMH and patient medications and allergies. PHYSICAL EXAM Vital Signs: 09/13/2016 10:16 BP: 170/84. HR: 97. RR: 30. O2 saturation: 100%. Temp: 97.5 F. Have been reviewed. Hypertensive. Heart rate normal. Tachypneic. Temperature normal. Oxygen saturation: on oxygen- oxygen saturation normal. Appearance: Alert. Patient in moderate distress. Eyes: Eyes normal inspection. ENT: Pharynx normal. Neck: Normal inspection. No jugular venous distention. CVS: Normal heart rate and rhythm. Heart sounds normal. Respiratory: Severe respiratory distress with accessory muscle use, retractions, anxiety, tachypnea and hyperventilation. Moderately prolonged expirations. Moderately decreased air movement diffusely over both lungs. Expiratory severe bilateral wheezes diffusely. Skin: Skin warm and dry. Normal skin color. No rash. Extremities: No calf tenderness. No lower extremity edema. Neuro: Oriented X 3. LABS, X-RAYS, AND EKG EKG: EKG time: (1027). No acute process. No acute ischemia. Normal sinus rhythm. Rate: 98. Normal P waves. First-degree atrioventricular block. Normal QRS complex. Normal axis. Normal ST and T waves, QT and QTc. Prior EKG unavailable. The study has been interpreted contemporaneously by me. The study has been independently viewed by me. The EKG appears to be a good tracing. I agree with and confirm the computer reading of the EKG. Interpretation time: 1027. Chest X-ray: (1. Hyperinflation with mild left basilar atelectasis 2. Large hiatal hernia). Views: AP. Technique: good. The X-rays were independently viewed by me, interpreted by the radiologist and contemporaneously by me and discussed with the radiologist. A comparison with prior films reveals that the findings are unchanged. Interpretation time: 1115. Laboratory Tests: ABG: (SANDY: 09/13/2016 10:31) ( [id number] 09/13/2016 10:47) Final results Test Result Flag Units (Reference) FIO2 32 % (20-101) ABG MODE OF DELIVERY NC MODIFIED KARRIE TEST POSITIVE? YES LITERS PER MIN. 3 L/MIN (0-20) ABG VENT MODE SB ABG PATIENT RESP RATE 36 /MIN ARTERIAL BLOOD GAS SITE RR ARTERIAL BLOOD GAS pH 7.31 L (7.35-7.45) ABG PCO2 56.6 H mmHg (35-45) ABG PO2 105.0 H mmHg (60.0-80.0) ABG BASE EXCESS 1.4 H mmol/L (-6.0--6.0) ABG HCO3 28.2 H mmol/L (20.0-26.0) ABG TCO2 30.0 mmol/L (24.0-30.0) ABG [id number] 58.5 H mmHg (7.0-14.0) *NOTE: Normal rangeis based on aFIO2 of 21% ABG SAT O2 98.1 % (95.1-100.0) ABG TOTAL HEMOGLOBIN 13.3 g/dL (12.0-16.0) ABG O2 HEMOGLOBIN 96.6 % (95.0-100.0) ABG CARBOXYHEMOGLOBIN 1.0 % (0.5-1.5) ABG METHEMOGLOBIN 0.5 % (0.4-1.5) ABG RHEMOGLOBIN 1.9 % . PROGRESS AND PROCEDURES Course of Care: 13:06 09/13/16. Duoneb x 2, Solumedrol 125, and Continuous Albuterol 10 mg. 19:41. Symptoms better. Critical care performed (70 minutes). Time includes: direct patient care, patient reassessment, coordination of patient care, interpretation of data (laboratory data, pulse oximetry, arterial blood gases, chest xrays and prior electrocardiograms), review of patient's medical records, medical consultation and documentation of patient care. The patient required critical care due to the acute impairment of vital organ systems (respiratory) and a high probability of imminent deterioration. Multiple urgent interventions were required to prevent sudden deterioration. Discussed case with hospitalist, (call returned [phone]). Reviewed test results and need for additional work-up. Agreed upon treatment plan, need for patient follow-up and decision to admit. Health care provider will see patient in hospital. Disposition: Condition: good. CLINICAL IMPRESSION 09/13/2016 10:26 BP: 186/96. HR: 97. RR: 26. O2 saturation: 92%. Vital Signs: have been reviewed. Hypertensive. Heart rate normal. Tachypneic. Oxygen saturation low. Acute exacerbation of COPD. Hypoxia. INSTRUCTIONS Follow-up: The patient was admitted and blood pressure will be managed during the admission. (Electronically signed by Agustin Blancas Dr. 09/13/2016 21:48)
--- NOTE | 2016-09-13 13:06 | ED ORDER SUMMARY ---
..... Patient: LATISHA BARKSDALE I OrderSheet [facility] VisitID: [id number] [address] [place] [address] 71y, F Registration Date/Time: 09/13/2016 ORDER SHEET Weight: 90.7 kg (estimated) Allergies: Beta blockers-severe weakness , Demerol, LIsinopril, Norvasc, Sulfa Drugs GENERAL ORDERS: ABG (G) Urgent (10:31 09/13/2016 Raphael Faye) (Ack 10:41 LTapper) (12:43 HOShaughmagalie R.N.) Chest 1V Urgent (10:40 09/13/2016 Raphael Faye) (Ack 10:41 LTapper) (12:43 HOShaughmagalie R.N.) MEDICATION ORDERS: DuoNeb Neb Tx 1 unit dose (NOW) (10:09/13/2016 Raphael Faye) (10:29 HOSprince R.N.) Albuterol Neb Tx 10 mg (Continuous over an hour) (10:09/13/2016 Raphael Faye) (10:51 HOSprince R.N.) IV FLUIDS: ORDER SHEET NOTES: [Electronically signed by Agustin Blancas Dr. (21:48 09/13/2016)] [Electronically signed by Javi Cerna R.N. (19:41 09/16/2016)] [Electronically locked/signed by Javi Cerna R.N. (19:41 09/16/2016)]
--- NOTE | 2016-09-13 14:33 | NUR ---
PT ARRIVED VIA STRETCHER TO ROOM 304 ALERT AND APPROPRIATE. SHE WALKED A FEW STEPS TO THE BED AND BECAME INCREASINGLY SOB WITH EXP WHEEZES.
--- NOTE | 2016-09-13 15:13 | Progress Note ---
Subjective General Admission History and Physical Examination Patient Name: Ricki Vasquez Admission Date: September 13, 2016 Primary Care Provider: Robert García M.D. Attending Physician: Gerry Dean M.D. Admitting Physician: Gerry Dean M.D. SUBJECTIVE Historian: Patient Reliability: Fair Chief Complaint: Shortness of breath History of Present Illness: The patient is a 71-year-old white female with a significant past medical history of COPD who presented to [facility] emergency department on the day of admission secondary to complaints of shortness of breath. [facility] ER evaluation was consistent with exacerbation of COPD with hypercapnic respiratory failure. Secondary to the above, the patient was admitted by Gerry Dean M.D. for further evaluation and treatment. The history of present illness began 2 days prior to admission when the patient developed mild cough, shortness of breath, and wheezing. Her symptoms progressed and she presented to [facility] emergency department on the day prior to admission. She was hospitalized at that time requested to leave early. The patient was discharged early only to return secondary to increasing shortness of breath. ER evaluation on the day of admission showed the patient to have findings consistent with exacerbation of COPD. No evidence of pneumonia. Findings suggestive of bronchitis. The patient was noted to have moderate to severe Restoril distress with hypercapnic respiratory failure. She underwent treatment with BiPAP, inhalation bronchodilators, and IV corticosteroids. Secondary to the above, the patient was admitted to the medical intensive care unit with a diagnosis of exacerbation of COPD, hypercapnic respiratory failure, bronchitis for further evaluation and treatment. Following admission the patient developed paroxysmal atrial fibrillation with rapid ventricular response requiring IV diltiazem for rate control. PAST MEDICAL HISTORY Illnesses: 1. COPD 2. Hypothyroidism 3. Paroxysmal atrial fibrillation 4. Hypercholesterolemia Allergies: 1. No known drug allergies Medications: 1. Synthroid 0.025 mg by mouth daily 2. Lorazepam 1 mg by mouth daily at bedtime 3. Singulair 10 mg by mouth daily at bedtime 4. Pravastatin 20 mg by mouth daily 5. Prilosec 40 mg by mouth daily Surgery: 1. None Injuries: 1. No significant Hospitalizations: 1. For above surgery and medical problems FAMILY HISTORY Parents: 1. Father, , 52, atrial fibrillation, 2. Mother, , 72, colon cancer Siblings: 1. Female, , 63, Parkinson's Children: 1. None Other significant family history: None SOCIAL HISTORY 1. Marital Status: 2. Restoration: None 3. Education: High school and associated degree 4. Employment History: court security officer, retired 5. Occupational health exposures: No significant HABITS 1. Tobacco: 48 pack years, quit smoking 25 years prior to admission 2. Drugs: None 3. Alcohol: None 4. Caffeine: 4 cups coffee per day HEALTH SUPERVISION Item/Test 1. Colonoscopy, 2009 IMMUNIZATIONS: 1. Pneumococcal: 2016 2. Influenza: Unknown 3. Tetanus: Unknown REVIEW OF SYSTEMS Remarkable for those things stated in the history of present illness and past medical history. Seventeen point review of system completed with the following notable findings: General: Fatigue, pain, weakness Skin: Dryness Eyes: Blurred vision, corrective lenses Throat: Hoarseness Respiratory: Shortness of breath, cough, wheezing, COPD, phlegm production Cardiovascular: Irregular heartbeat, hypertension, shortness of breath with exertion, shortness of breath when lying flat Musculoskeletal: Hip arthritis Neurological: Sensation changes Psychological: Anxiety Physical Exam Vital Signs / I&Os Vital Signs Date Time Temp Pulse Resp B/P Pulse O2 O2 Flow FiO2 Ox Delivery Rate 09/13 1439 Nasal 2.0 Cannula 09/13 1431 97.7 97 28 171/76 97 Nasal 2.0 Cannula 09/13 1015 3.0 General Appearance Alert, Oriented X3, Cooperative, Moderate distress HEENT Atraumatic, PERRLA, EOMI, Moist mucous membranes Lungs Clear to auscultation, Normal air movement Neck Supple, No JVD, No masses Cardiovascular Normal S1 and S2, No murmurs, gallops, rubs, irregular rhythm, tachycardic Abdomen Normal bowel sounds, Soft, No tenderness, No guarding Extremities No cyanosis, No clubbing, No edema Neurological Cranial nerves intact, Strength 5/5 x4 ext's, No lateralizing signs Psych/Mental Status Mental status normal, Mood normal LAB Results Laboratory Tests 09/13 1031 Blood Gas Sample Site RR Total CO2 (24.0 - 30.0 mmol/L) 30.0 ABG pH (7.35 - 7.45) 7.31 ABG pCO2 at Pt Temp (35 - 45 mmHg) 56.6 ABG pO2 at Pt Temp (60.0 - 80.0 mmHg) 105.0 ABG HCO3 (20.0 - 26.0 mmol/L) 28.2 ABG O2 Sat Calc/Cinthia (95.1 - 100.0 %) 98.1 ABG Base Excess (-6.0 - -6.0 mmol/L) 1.4 ABG Reduced Hgb (%) 1.9 ABG Carboxyhemoglobin (0.5 - 1.5 %) 1.0 ABG Methemoglobin (0.4 - 1.5 %) 0.5 Lev Test YES Other Total Hgb (12.0 - 16.0 g/dL) 13.3 A-a O2 Gradient (7.0 - 14.0 mmHg) 58.5 Hgb O2 Saturation (95.0 - 100.0 %) 96.6 Respiration Rate (/MIN) 36 O2 Liters/Min (0 - 20 L/MIN) 3 Vent Mode SB FiO2 (20 - 101 %) 32 Imaging Chest x-ray IMPRESSION: 1. Hyperinflation with mild left basilar atelectasis 2. Large hiatal hernia Dictated by: FINA AGUIRRE MD D: CRISTEL;09/13/16 1115 Assessment and Plan Problem List 1. COPD exacerbation Status Chronic Onset Date Unknown Plan -Patient presents with findings of exacerbation COPD -DuoNeb, albuterol, IV corticosteroids -BiPAP as necessary -Monitor closely secondary to hypercapnic respiratory failure -Magnesium 2 g IV -No evidence of pneumonia, hold antimicrobials 2. Hypothyroidism Status Chronic Onset Date Unknown Plan -Patient with history of hypothyroidism -TSH depressed, check free T4 and free T3 -Possible iatrogenic hyperthyroidism with paroxysmal atrial fibrillation -Hold Synthroid at this time 3. Hypertension Plan -Monitor -Cardizem CD when taking meds orally, Cardizem IV at this time -Low-salt diet 4. Paroxysmal atrial fibrillation Status Acute Onset Date Unknown Plan -Patient with paroxysmal atrial fibrillation with rapid ventricular response -Depressed TSH as noted above -IV diltiazem for rate control -Switch to oral Cardizem as appropriate -Anticoagulation Current status: Critical, unstable Anticipated discharge date: Anticipated discharge in 3-4 days Anticipated discharge placement: Home Patient care time: Time spent in chart review, patient interview, physical exam, CPOE, and care documentation: Greater than 70 minutes Visit to patient today: 2 Complexity of care: High -Approximately 70 minutes spent in critical care of patient with chart review, patient interview, physical examination, CPOE, and interaction with ER physician. 5. Hypercapnic respiratory failure Status Acute Onset Date 09/13/16 E&M Codes Critical Care: 30-74 min/[id number]
--- NOTE | 2016-09-13 23:59 | NUR ---
WHILE HELPING PT TO BSC, PT APPEARS TO BE OUT OF IT. WHEN ASKED TO REACH FOR THE BSC, PT STARTED TO PUSH THE BSC AROUND INSTEAD OF SITTING ON IT. WHEN I ASKED HER IF SHE WAS CONFUSED PT STATED "NO I AM JUST UPSET AND A SEDATIVE WILL FIX IT." PT IS NOT FOLLOWING COMMANDS WITH CARE TO HELP WITH COMFORT
[2016-09-14] VITALS (24 sets, daily range): BP systolic 111–176; BP diastolic 45–96
--- NOTE | 2016-09-14 02:04 | NUR ---
PATIENT WAS ALERT AND ORIENTED BUT FORGETFUL HOWEVER SEEMS TO BE GETTING MORE CONFUSED AND FORGETFUL THE NIGHT GOES ON, EXPLAINED TO PATIENT FREQUENTLY WHY SHE IS HERE, WHAT WE WOULD LIKE HER TO DO AND WHAT HER TREATMENT IS, HAVE ASKED HER TO TEACH BACK WHAT WAS SAID AND SHE CAN NOT DO THAT, PATIENT GET AGITATED AND WORKED UP, STARTS TO HYPERVENTILATE AND AUDIBLY WHEEZEY, HEART RATE INCREASES AND PATIENT DOESNT FOLLOW DIRECTION, WHEN CALMED DOWN AND DECREASE STIMULI, PATIENT BREATHING NORMALIZES, HEART RATE DECREASES AND PATIENTS BEHAVIOR CALMS, ATIVAN GIVEN PRN AND ROUTINELY, DILT DRIP STILL AT 20, MD IN TO SEE PATIENT, NEW ORDERS RECIEVED AND CARRIED OUT, WILL CONTINUE TO MONITOR
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
--- NOTE | 2016-09-14 05:29 | NUR ---
PATIENT WOKE COUGHING WITH SOB, SPECIALTY FINISHING UTILITY PERSON ANGEL SUSAN AND I WENT IN TO ASSIST THE PATIENT, PATIENT SAT AT EDGE OF BED WITH EYES CLOSED TRYING TO CATCH HER BREATHE, INSTRUCTED PATIENT TO TAKE DEEP BREATHES IN THROUGH HER NOSE, O2 SATS STAYED AT 96% OR ABOVE, PATIENT TRYED TO STAND UP AND WALK WITH EYES CLOSED, TRIED TO ENCOURAGE PATIENT TO SIT FOR SAFETY, ASKED PATIENT TO OPEN EYES, PATIENT REFUSED TO OPEN EYES OR FOLLOW INSTRUCTIONS ONLY STATED "PLEASE" OVER AND OVER, LISTENED TO LUNG SOUNDS, DIMINISHED WITH SLIGHT WHEEZES THROUGHOUT, ABLE TO GET PATIENT BACK IN BED, CALLED RT FOR A RESPIRATORY TREATMENT, PATIENT STATED SHE WAS GOING TO START HITTING AND KICKING, INFORMED PATIENT THAT BEHAVIOR WAS NOT APPROPRIATE, RT CAME TO GIVE TX, GAVE ATIVAN TO HELP CALM PATIENT, PATIENT SEEM TO CALM GETTING HER TREATMENT, PATIENT STARTED MOVING TOWARDS TO EDGE OF BED TO GET OUT, TOLD PATIENT NOT TO GET OUT OF BED, PATIENT BEGAN HITTING WITH FISTS AND KICKING, REACHED BACK TO RESTRAIN PATIENTS FEET, PATIENT CAUGHT MY PONYTAIL AND YANKED, FELA OHARA WAS CALLED, PATIENT WAS PLACED IN RESTRAINTS AND GIVEN HALDOL, WILL CONTINUE TO MONITOR
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
--- NOTE | 2016-09-14 09:50 | NUR ---
PT CONFUSED, AGITATED. TRIED TO ORIENT PT, BUT DID NOT HELP. HYPERTENSIVE. MONITOR SHOWED AF WITH HR 120'S. ATIVAN GIVEN. PT ABLE TO FALL ASLEEP, HR 80'S-90'S, BP 124/56, RR 24.
--- NOTE | 2016-09-14 11:10 | NUR ---
PT AWAKE. HR IN THE LOW 100'S. GIVEN CARDIZEM PO. PT CHEWED IT. AGITATED, NOT COOPERATIVE. SATS 84% WHILE PT THRASHING IN BED. INC OF URINE. PT BATHED, LINEN CHANGED,TURNED. TACHYPNEIC.
--- NOTE | 2016-09-14 12:17 | NUR ---
PT SLEEPING AT PRESENT. CARDIZEM AT 5MG/H.
--- NOTE | 2016-09-14 14:41 | NUR ---
NUTRITION ASSESSMENT: S: Pt admitted with dx/o COPD. PMH includes COPD, hyopothyroidism, A fib, hypercholesterolemia. Pt apparently having behavior issues, combative with staff. Po inlcudes some sips of clear liquids O: Diet Rx: clear Liquids NKFA Wts: 64.9 kg Ht: 66" IBW: 52-66 kg %IBW: 108% BMI: 23.2 Est Kcals: ~5291-3123 kcals per day Est Pro: ~60-70 g per day Est Fluids: ~1800 mls per day Labs incl: (/) glucose 158, BUN 17, Creat 0.9, Na+ 142, K+ 3.9, mag 2.5, Ca+ 9.0, HCT 40.8, HGB 12.9 Skin: Doug Score 15; skin fragile A: Pt sleeping most of the day. Intake appears poor. Rec offer Boost Breeze Juice to help optimize protein and kcal intake. Rec advance diet when able.BMI wnl, no weight loss desired. RD to follow up prn/protocol. P: 1. BOOST Breeze juice bid
--- NOTE | 2016-09-14 15:46 | NUR ---
CARDIZEM GTT DC'D AT 1350. HR IN LOW 100'S WHEN MORE AWAKE. AT PRESENT PT SLEEPING WITH HR 80'S TO 90'S, RR 22.
--- NOTE | 2016-09-14 18:20 | NUR ---
POSITIONED CHANGED.BECOMING RESTLESS. ABLE TO SWALLOW A PILL. IMPULSIVE. BED ALARM ON.
--- NOTE | 2016-09-14 20:44 | NUR ---
PT RESTING IN BED. RESPIRATORY IN WITH PT - PROVIDING TREATMENT FOR SOB. HEART RATE IN THE LOW 100'S - AFIB NOTED, RESPIRATORY RATE AT 29, CO2 AT 36, O2 SATS PRIOR TO TREATMENT ON 2 LITERS NC AT 91%, LAST BLOOD PRESSURE AT 176/91. PERICARE PROVIDED, ATTENDS CHANGED, PT INCONTINANT OF URINE. REPOSITIONED IN BED. NO SKIN BREAKDOWN NOTED. IV TO LFA UNREMARKABLE - IV INFUSING AT 125/HR. BED ALARM ON. PT TOLERATING CLEAR LIQUIDS. CALL LIGHT WITHIN REACH. WILL CONTINUE TO MONITOR.
--- NOTE | 2016-09-14 23:50 | NUR ---
RESPIRATORY THERAPIST IN TO ASSESS PT, ALBUTEROL TREATMENT GIVEN FOR SOB. PT ANXIOUS/RESTLESS - ATIVAN IV GIVEN - WILL CONTNIUE TO MONITOR.
[2016-09-15] VITALS (17 sets, daily range): BP systolic 118–187; BP diastolic 59–93
--- NOTE | 2016-09-15 00:08 | NUR ---
HEART RATE AT 119, BLOOD PRESSURE AT 131/59 - 10MG IV DILTIAZEM GIVEN TO PT - WILL CONTINUE TO MONITOR.
--- NOTE | 2016-09-15 06:39 | NUR ---
PT REMAINS IN AFIB THIS AM. HEART RATE IN THE 90'S. 02 SATS AT 97% ON 2 LITERS O2 NC. LAST BLOOD PRESSURE AT 132/79. RESPIRATIONS AT 20. CALL LIGHT WITHIN REACH. BED ALARM ON .
--- NOTE | 2016-09-15 08:17 | Progress Note ---
Subjective General Note Date: September 15, 2016 Admission Date: September 13, 2016 Hospital Day: 3 PCP: Robert García M.D. Status: Inpatient Advanced Directive: FULL CODE Room: 304 Brief History: The patient is a 71-year-old white female with a significant past medical history of COPD who presented to [facility] emergency department on the day of admission secondary to complaints of shortness of breath. [facility] ER evaluation was consistent with exacerbation of COPD with hypercapnic respiratory failure. Secondary to the above, the patient was admitted by Gerry Dean M.D. for further evaluation and treatment. For other history present illness, past medical history, family history, social history, review of systems, and admission physical examination please see the patient's history and physical examination and ER visit note in the patient's medical record. Subjective: The patient remains confused and slightly lethargic. Intermittent episodes of agitation. Mental status remains abnormal. No complaints Patient requests: None Medications and Allergies Medications Current Medications Sig/Tana Start time Last Medication Dose Route Stop Time Status Admin Prednisone 20 MG BID 09/15 1200 AC PO Diltiazem HCl 180 MG BID 09/14 2100 AC 09/15 PO 0853 Enoxaparin Sodium 60 MG BID 09/14 2100 AC 09/15 SC 0853 Diltiazem HCl 10 MG Q2H PRN 09/14 1845 AC 09/15 IV 0825 Atorvastatin Calcium 20 MG QPM 09/14 1800 AC 09/14 PO 1820 Quetiapine Fumarate 25 MG BID 09/14 0900 AC 09/15 PO 0853 Pantoprazole Sodium 40 MG DAILY@0600 09/14 0600 AC 09/15 IV 0527 Montelukast Sodium 10 MG DAILY 09/13 1828 AC 09/15 PO 0853 Acetaminophen 650 MG Q4H PRN 09/13 1515 AC PO Al Hydrox/Mg Hydrox/ 15 ML Q1H PRN 09/13 1515 AC Simethicone PO Atropine Sulfate 0.5 MG Q3MIN PRN 09/13 1515 AC IV Lidocaine HCl See Dose ONCE PRN 09/13 1515 AC Insts (1) IV Lorazepam 0.5 MG Q2H PRN 09/13 1515 AC 09/15 IV 0320 Magnesium Hydroxide 10 ML DAILY PRN 09/13 1515 AC PO Morphine Sulfate 2 MG Q3M PRN 09/13 1515 AC IV Nitroglycerin 0.4 MG Q5M PRN 09/13 1515 AC SL Ondansetron HCl 4 MG Q6H PRN 09/13 1515 AC IV Sodium Chloride 1,000 ML ASDIRECTED 09/13 1515 AC 09/15 IV 0220 Albuterol Sulfate 2.5 MG RTQ3H PRN 09/13 1500 AC 09/14 IN 2337 Albuterol/Ipratropium 3 ML RTQ6H 09/13 1500 AC 09/15 IN 0733 Dose Instructions: (1)Lidocaine HCl: 1.5 MG/KG Allergies Coded Allergies: Lisinopril (Severe, ANAPHYLAXIS 09/13/16) Amlodipine (From Norvasc) (Intermediate, PT EXPERIENCED WEAKNESS, TOLERATED IV DILTIAZEM TEST DOSE 09/13/16) Prednisone (Intermediate, HIGH BLOOD PRESSURE 09/13/16) Meperidine (From DEMEROL HCL) (09/13/16) Sulfa Antibiotics (09/13/16) Beta Adrenergic Blockers (Intermediate, LETHARGY 09/13/16) Physical Exam Vital Signs / I&Os Vital Signs Date Time Temp Pulse Resp B/P Pulse O2 O2 Flow FiO2 Ox Delivery Rate 09/15 0734 2.0 09/15 0700 97.3 94 30 141/76 97 Nasal 2.0 Cannula 09/15 0609 97.5 94 21 132/79 97 Nasal 2.0 Cannula 09/15 0542 88 22 97 2.0 09/15 0510 87 23 129/75 96 Nasal 2.0 Cannula 09/15 0410 98 21 141/86 96 Nasal 2.0 Cannula 09/15 0325 100 27 140/76 94 Nasal 2.0 Cannula 09/15 0255 2.0 09/15 0209 97.7 102 20 118/70 97 Nasal 2.0 Cannula 09/15 0110 106 23 155/87 96 Nasal 2.0 Cannula 09/15 0012 98 24 131/59 97 Nasal 2.0 Cannula 09/15 0007 100 09/14 2338 106 26 129/70 98 2.0 09/14 2321 97.7 09/14 2308 87 23 129/70 97 Nasal 2.0 Cannula 09/14 2200 102 27 121/70 96 Nasal 2.0 Cannula 09/14 2110 97 34 143/75 96 Nasal 2.0 Cannula 09/14 2048 112 30 112 2.0 09/14 2033 Nasal 2.0 Cannula 09/14 2017 101 27 176/91 96 Nasal 2.0 Cannula 09/14 1946 90 09/14 1927 96.8 80 14 142/70 98 Nasal 2.0 Cannula 09/14 1813 94 23 122/71 97 Nasal 2.0 Cannula 09/14 1722 90 30 131/60 96 Nasal 2.0 Cannula 09/14 1612 88 21 122/65 97 Nasal 2.0 Cannula 09/14 1535 95 20 124/60 95 Nasal 2.0 Cannula 09/14 1400 2.0 09/14 1400 97.9 107 29 166/88 96 Nasal 2.0 Cannula 09/14 1300 98 33 166/96 96 Nasal 2.0 Cannula 09/14 1200 103 33 117/63 96 Nasal 2.0 Cannula 09/14 1100 97.7 100 33 164/73 95 Nasal 2.0 Cannula 09/14 1000 82 30 119/61 98 Nasal 2.0 Cannula 09/14 0900 85 27 124/56 97 Nasal 2.0 Cannula I&O 09/15 0000 09/14 1600 09/14 0800 Intake Total 1395 60 960 Output Total 650 300 Balance 745 60 660 General Appearance No acute distress, Lethargic, minimally interactive, confused Lungs diffuse rhonchi, mild expiratory wheezes Cardiovascular Normal S1 and S2, irregular rhythm, rate controlled Abdomen Normal bowel sounds, Soft Extremities No cyanosis, No clubbing Neurological Cranial nerves intact, No lateralizing signs Psych/Mental Status Confused, lethargic LAB Results Laboratory Tests 09/15 514 Chemistry Plasma Sodium (136 - 145 mmol/L) 145 Plasma Potassium (3.5 - 5.1 mmol/L) 4.4 Plasma Chloride (98 - 107 mmol/L) 110 CO2 (Enzymatic) (21 - 32 mmol/L) 29 BUN (7 - 18 mg/dL) 18 Creatinine (0.6 - 1.3 mg/dL) 0.7 Est GFR ( Amer) (mL/min) >60 Est GFR (Non-Af Amer) (mL/min) >60 Glucose (70 - 110 mg/dL) 150 Plasma Calcium (8.5 - 10.1 mg/dL) 8.9 Hematology WBC (4.5 - 11.5 K/uL) 6.7 RBC (4.00 - 5.20 M/uL) 4.38 Hgb (12.0 - 16.0 gm/dL) 12.2 Hct (36.0 - 46.0 %) 38.2 MCV (80 - 100 fL) 87 MCH (26 - 34 pg) 28 RDW (11.6 - 14.8 %) 15.3 Neut % (Auto) (50 - 75 %) 89.8 Lymph % (Auto) (25 - 40 %) 7.0 [place] % (Auto) (3 - 14 %) 3.2 Eos % (Auto) (0 - 4 %) 0 Baso % (Auto) (0 - 2 %) 0 Plt Count, EDTA (150 - 400 K/uL) 162 PUBS MCHC (31 - 37 g/dL) 32 Assessment and Plan Problem List 1. Hypercapnic respiratory failure Status Acute Onset Date 09/13/16 Plan -Status post improved -O2 sat 97% 2 L/m nasal cannula oxygen -Continue DuoNeb -Switch corticosteroids to prednisone 20 mg by mouth twice a day 2. Mental status change Status Acute Onset Date 09/13/16 Plan -Patient with persistent mental status changes and confusion/agitation -Continue Seroquel 25 mg by mouth twice a day -Attempt to wean Ativan 3. Paroxysmal atrial fibrillation Status Acute Onset Date Unknown Plan -Persistent atrial fibrillation -Episodes of tachycardia -Cardizem increased to 180 mg by mouth twice a day from 240 mg by mouth daily -Continue when necessary Cardizem -May require beta saleem in addition to Cardizem for rate control -Continue Lovenox -Echocardiogram scheduled for today 4. Hypothyroidism Status Chronic Onset Date Unknown Plan -Patient placed back on Synthroid 0.025 mg by mouth daily -Monitor 5. COPD exacerbation Status Chronic Onset Date Unknown Plan -See above -Continue present therapy with switch to oral corticosteroids Current status: Unstable, fair Anticipated discharge date: Anticipated discharge in 3-4 days to senior living facility Anticipated discharge placement: [facility] facility Patient care time: Time spent in chart review, patient interview, physical exam, CPOE, and care documentation: 35 minutes Visit to patient today: 2 Complexity of care: High E&M Codes Rounding: Inpt-High/[id number]
--- NOTE | 2016-09-15 09:00 | NUR ---
PT WANTING TO USE THE BR. UP TO BSC. DID NOT VOID. HR 130-140'S AF WHEN UP. RR 30'S. CARDIZEM 10 MG GIVEN IV, PLACED IN CHAIR AND PT RESTING QUIETLY. HR IN 80-90'S. SATS 96% ON 2L/NC
--- NOTE | 2016-09-15 09:31 | NUR ---
BACK TO BED PER PT REQUEST. SOB WITH EXCERTION. AUDIBLE WHEEZES. NEEDS LOTS OF DIRECTION ON HOW TO MOVE TO BED. HR STAYED IN THE LOW 100'S WITH ACTIVITY.
--- NOTE | 2016-09-15 12:54 | NUR ---
PT DID NOT WANT A WAFFLE MATTRESS ON BED. UP IN CHAIR FOR MEALS. ATE BETTER FOR LUNCH WITH FRIEND AT HER SIDE. PT RESTING CALMLY IN CHAIR, HR 90'S-107, AF, RR 24, SATS 97%.
--- NOTE | 2016-09-15 19:45 | NUR ---
PT RESTING IN BED. SLEEPING BUT AROUSES EAILY TO VOICE. COOPERATIVE TO CARE. ALERT AND ORIENTED TO NAME, BIRTHDATE AND YEAR. NEEDS REORIENTATION TO PLACE AND TIME. SOB - RESPIRATIONS AT 30. O2 SATSA T 95% ON 3.5L NC. DILTIAZEM PRN 10MG IV GIVEN FOR A HEART RATE IN THE 120'S - AFIB NOTRED PER TELE. NO COMPLAINTS OF CHEST PAIN, NOHEART PALPITATIONS. CO2 AT 33. LAST BLOOD PRESSURE AT 159/82. PT MOVING AROUND ON OWN IN BED. IV TO LFA UNREMARKABLE - INFUSING AT 125/HR. CALL LIGHT WITHIN REACH. BED ALARM ON.
--- NOTE | 2016-09-15 21:30 | NUR ---
O2 SATS AT 88, PT AGGITATED, TRYIG TO GET OUT OF BED. MOUTH BREATHING - OXYMASK PLACED ON PT - 3.5 LITERS O2 SATS AT 94%. RESPIRATORY THERAPIST IN ROOM TO SEE PT.
--- NOTE | 2016-09-16 01:00 | NUR ---
DR BATES AWARE OF OUTPUT OF 76 INCONTINANCE IN BRIEFS TOTAL OUTPUT SINCE 1801 AND BLADDER SCAN OF 85ML - AWAITING NEW ORDERS.
--- NOTE | 2016-09-16 03:00 | NUR ---
PTS BED ALARM WAS GOING OFF SO THIS PARACHUTE PACKER WENT IN TO CHECK ON PATIENT. PATIENT WOULD NOT OPEN EYES, AND WOULD NOT SAY ANYTHING WHEN ASKED QUESTIONS. PATIENT JUST REPEATEDLY ATTEMPTED TO GET OUT OF BED. WHILE I WAS IN THE ROOM I ASKED HER TO OPEN HER EYES AND TO TALK TO ME. PREVIOUSLY IN THE NIGHT PATIENT WAS MAKING HER NEEDS KNOWN AND ANSWERING QUESTIONS. I PUT THE PATIENTS LEGS BACK ON THE BED. PATIENT WENT TO CLIMB OUT AGAIN AND WHEN I GRABBED FOR HER LEFT WRIST TO TELL HER TO STOP, THE PATIENT CAME UP SWINGING WITH HER RIGHT ARM WHEN I WENT TO BLOCK THE HIT AND STEP AWAY THE PATIENT GRABBED ONTO MY SHIRT AND WOULD NOT LET GO ALONG WITH SWINGNING AT ME. SOMEWHERE IN THE MIX THE PATIENT SCRATCHED MY HAND. JETT THEN CAME IN I WAS FINALLY ABLE TO BREAK HER HOLD ON MY SHIRT. WHEN JETT WAS IN THE ROOM THE PATIENT WAS STILL TRYING TO GET OUT OF THE BED AND ATTEMPTED TO KICK HER. WE THEN PLACED THE PATIENT IN FOUR POINT SOFT RESTRAINTS.
--- NOTE | 2016-09-16 03:22 | NUR ---
PT PLACED IN RESTRAINTS AT 0300, ORDERS RECIEVED FROM DR BATES, CASINO ATTENDANT AWARE, PT IS UNABLE TO FOLLOW COMMANDS, FALL RISKS, IMPULSIVE, AGGITATED, PULLING AT IV SITES, SWINGING AT STAFF, SCRATCHED ANALYZER SALES, KICKING.
--- NOTE | 2016-09-16 06:38 | NUR ---
PT REMAINS IN RESTRAINTS. RESPIRATIONS AT 24, O2 SATS AT 98% ON 2 LITERS NC. HEART RATE IN THE HIGH 90'S TO LOW 100'S - AFIB. PT REMAINS IN RESTRAINTS.
[2016-09-16 07:24] VITALS: BP 132/79
--- NOTE | 2016-09-16 10:18 | NUR ---
Pt presents with hypercapnic respiratory failure. Med hx sig for COPD. Large hiatal hernia noted in radiology report. Pt was lethargic and did not fully participate in evaluation. OME was not completed due to TODD. Trials were initated to determine if patient could take medication PO. Swallow reflex was delayed and laryngeal excursion was complete. Immediate, weak coughing on sip of thin liquid. Trials of ice chips and small tsp of puree were without overt s/s of aspiration. Recommend initiation of stimulation diet when pt is awake, ice chips, and meds crushed or via IV. Discussed with RN and MD. GUN PROFILER will reassess when pt is more alert. Please call Soraida Abraham MA [facility]UN PROFIL[facility], at [phone] when pt is more alert.
[2016-09-16 10:36] VITALS: BP 169/91
--- NOTE | 2016-09-16 10:47 | Progress Note ---
Subjective General Note Date: September 16, 2016 Admission Date: September 13, 2016 Hospital Day: 4 PCP: Robert García M.D. Status: Inpatient Advanced Directive: FULL CODE Room: 304 Brief History: The patient is a 71-year-old white female with a significant past medical history of COPD who presented to [facility] emergency department on the day of admission secondary to complaints of shortness of breath. [facility] ER evaluation was consistent with exacerbation of COPD with hypercapnic respiratory failure. Secondary to the above, the patient was admitted by Gerry Dean M.D. for further evaluation and treatment. For other history present illness, past medical history, family history, social history, review of systems, and admission physical examination please see the patient's history and physical examination and ER visit note in the patient's medical record. Subjective: The patient remains confused and slightly lethargic. Intermittent episodes of agitation. Mental status remains abnormal. No complaints today. Patient requests: None Medications and Allergies Medications Current Medications Sig/Tana Start time Last Medication Dose Route Stop Time Status Admin Pantoprazole Sodium 40 MG DAILY@0600 09/16 0600 AC 09/16 Sesquihydrate PO 0509 Prednisone 20 MG BID 09/15 1200 AC 09/16 PO 1034 Diltiazem HCl 180 MG BID 09/14 2100 AC 09/16 PO 1034 Enoxaparin Sodium 60 MG BID 09/14 2100 AC 09/16 SC 1000 Diltiazem HCl 10 MG Q2H PRN 09/14 1845 AC 09/16 IV 0516 Atorvastatin Calcium 20 MG QPM 09/14 1800 AC 09/15 PO 1828 Quetiapine Fumarate 25 MG BID 09/14 0900 AC 09/16 PO 1000 Montelukast Sodium 10 MG DAILY 09/13 1828 AC 09/16 PO 1000 Acetaminophen 650 MG Q4H PRN 09/13 1515 AC PO Al Hydrox/Mg Hydrox/ 15 ML Q1H PRN 09/13 1515 AC Simethicone PO Atropine Sulfate 0.5 MG Q3MIN PRN 09/13 1515 AC IV Lidocaine HCl See Dose ONCE PRN 09/13 1515 AC Insts (1) IV Lorazepam 0.5 MG Q2H PRN 09/13 1515 AC 09/16 IV 0143 Magnesium Hydroxide 10 ML DAILY PRN 09/13 1515 AC PO Morphine Sulfate 2 MG Q3M PRN 09/13 1515 AC IV Nitroglycerin 0.4 MG Q5M PRN 09/13 1515 AC SL Ondansetron HCl 4 MG Q6H PRN 09/13 1515 AC IV Sodium Chloride 1,000 ML ASDIRECTED 09/13 1515 AC 09/16 IV 0511 Albuterol Sulfate 2.5 MG RTQ3H PRN / 1500 AC 09/16 IN 0533 Albuterol/Ipratropium 3 ML RTQ6H 09/13 1500 AC 09/16 IN 0926 Dose Instructions: (1)Lidocaine HCl: 1.5 MG/KG Allergies Coded Allergies: Lisinopril (Severe, ANAPHYLAXIS 09/13/16) Amlodipine (From Norvasc) (Intermediate, PT EXPERIENCED WEAKNESS, TOLERATED IV DILTIAZEM TEST DOSE 09/13/16) Prednisone (Intermediate, HIGH BLOOD PRESSURE 09/13/16) Meperidine (From DEMEROL HCL) (09/13/16) Sulfa Antibiotics (09/13/16) Beta Adrenergic Blockers (Intermediate, LETHARGY 09/13/16) Physical Exam Vital Signs / I&Os Vital Signs Date Time Temp Pulse Resp B/P Pulse O2 O2 Flow FiO2 Ox Delivery Rate 09/16 0926 2.0 09/16 0724 132/79 09/16 0710 97.7 09/16 0648 109 24 99 Nasal 2.0 Cannula 09/16 0533 2.0 09/16 0351 92 26 99 Nasal 2.0 Cannula 09/16 0145 4.0 09/15 2337 106 28 146/93 99 4.0 09/15 2234 97.5 96 22 146/93 95 Mask 2.0 09/15 2012 108 28 159/82 98 2.0 09/15 1936 Nasal 3.5 Cannula 09/15 1858 103 09/15 1849 97.5 106 29 159/82 97 Nasal 3.5 Cannula 09/15 1633 2.0 09/15 1449 98.2 99 24 172/82 98 Nasal 2.0 Cannula 09/15 1401 2.0 09/15 1100 115 26 187/81 98 Nasal 2.0 Cannula I&O 09/16 0000 09/15 1600 09/15 0800 Intake Total 1142 1614 1554 Output Total 155 594 270 Balance 987 1020 1284 General Appearance No acute distress, lethargic, minimally interactive Lungs Normal air movement, minimal expiratory wheezes-much improved Cardiovascular Normal S1 and S2, irregular rhythm, rate controlled Abdomen Normal bowel sounds, Soft Extremities No cyanosis, No clubbing, No edema Neurological Cranial nerves intact, No lateralizing signs Psych/Mental Status Confused, intermittently agitated, requires ongoing restraints when necessary Assessment and Plan Problem List 1. COPD exacerbation Status Chronic Onset Date Unknown Plan -Stable, improved -Continue DuoNeb, albuterol, by mouth corticosteroids. -Supplemental oxygen as necessary -Monitor 2. Hypothyroidism Status Chronic Onset Date Unknown Plan -Stable -Continue Synthroid -Monitor 3. Paroxysmal atrial fibrillation Status Acute Onset Date Unknown Plan -Heart rate with improved control -Cardizem 180 mg by mouth twice a day -Echocardiogram today -Monitor -Continue anticoagulation 4. Hypercapnic respiratory failure Status Acute Onset Date 09/13/16 Plan -See above -Improved -Continue treatment as noted above 5. Mental status change Status Acute Onset Date 09/13/16 Plan -Patient with persistent confusion, agitation -Continue Seroquel 25 mg by mouth twice a day -Attempt to avoid benzodiazepines -Monitor -Most significant problem patient's management at this time 6. Chronic anticoagulation Status Chronic Onset Date Unknown Plan -Continue Lovenox until decision made for chronic anticoagulation Current status: Fair, unstable Anticipated discharge date: Anticipated discharge in 3 days Anticipated discharge placement: [facility] facility Patient care time: Time spent in chart review, patient interview, physical exam, CPOE, and care documentation: 35 minutes Visit to patient today: 2 Complexity of care: High E&M Codes Rounding: Inpt-High/[id number]
--- NOTE | 2016-09-16 11:25 | NUR ---
pt unable to be seen d/t high census. Will ck bk 09-17-16
[2016-09-16 14:26] VITALS: BP 156/89
--- NOTE | 2016-09-16 14:59 | NUR ---
NUTRITION FOLLOW UP NOTE: Pt was seen by PHOTORESIST PRINTER services today. Pt diet changed to puree with no liquids at this time "stimulation diet". PHOTORESIST PRINTER to follow up with pt tomorrow in hopes that she is more alert. Pt on day 3 of admit and has taken little PO. Will continue to monitor oral nutrition progress, may need to consider alternate means of nutrition if pt unable to start po diet >5-7 days.
[2016-09-16 18:19] VITALS: BP 112/65
--- NOTE | 2016-09-16 19:30 | NUR ---
SHIFT SUMMARY: PT WAS VERY DROWSY THIS MORNING BARELY ABLE TO OPEN HER EYES ON REQUEST. HER SPEECH WAS SLURRED/GARBLED, AND SHE WOULD YELL OUT ON OCCASION. SHE WAS NOT COMBATIVE SO RESTRAINTS WERE REMOVED EARLY ON AND HAVE NOT BEEN NECESSARY ALL DAY. THE DAY HAD PROGRESSED SHE HAS CLEARED SOMEWHAT MENTALLY. SHE IS STILL A LITTLE IMPULSIVE GETTING UP OUT OF BED OR CHAIR WITHOUT CALLING FOR HELP (BED/CHAIR ALRMS USED), BUT IS A LITLLE EASIER TO REASON WITH TONIGHT. SHE IS ABLE TO MAKE HER TOILETING NEEDS KNOWN. SHE WAS ABLE TO FEED HERSELF HER PUREED DINNER TONIGHT AND HAD NO PROBLEMS WITH SWALLOWING. PT IN AFIB ALL DAY WITH RATE IN THE 100 TO 120 RANGE, PRN DILTIAZEM GIVEN WITH GOOD RESULT AND RATE DECREASED TO THE 80-90 RANGE. PT CONTINUES TO SOUND WHEEZY WITH INCREASED WHEEZE AND SHORTNESS OF BREATH WITH ACTIVITY, SHE IS ON O2 2L WITH SAO2 IN THE MID 90s. PT HAS A DRY HACKY NON-PRODUCTIVE COUGH.
--- NOTE | 2016-09-16 19:41 | ED MED RECONCILIATION SUMMARY ---
Patient: LATISHA BARKSDALE I Medication Reconciliation Report [facility] VisitID: [id number] [address] [place] [address] 71y, F Registration Date/Time: 09/13/2016 Weight: 90.7 kg Height/Length: 64 in. BMI: 34.3 ALLERGIES: Beta blockers-severe weakness , Demerol, LIsinopril, Norvasc, Sulfa Drugs The patient's Home Medications are listed below: THE FOLLOWING MEDICATIONS NEED TO BE RECONCILED: Albuterol MDI 2 puffs Qid, last dose: 1400 Belladonna oral Diltiazem HCl Oral 180 mg, daily LORazepam Oral 1 mg, at bedtime, last dose: last nighty Omeprazole Oral 40 mg, daily Prevastatin 1/2 tab daily Singulair Oral, daily Synthroid Oral 50 mcg, daily The source(s) of the original Home Medication information: Not obtained. The following Medications were given to the patient in the Emergency Department: Duoneb [Neb Tx] Neb TX 1 unit dose, administered: 09/13/2016 10:29:00 AM Albuterol [Neb Tx] Neb TX 10 mg, administered: 09/13/2016 10:51:00 AM The following Medications were prescribed to the patient: None.
--- NOTE | 2016-09-16 19:41 | ED MED RECONCILIATION SUMMARY ---
Patient: LATISHA BARKSDALE I Medication Reconciliation Report [facility] VisitID: [id number] [address] [place] [address] 71y, F Registration Date/Time: 09/13/2016 Weight: 90.7 kg Height/Length: 64 in. BMI: 34.3 ALLERGIES: Beta blockers-severe weakness , Demerol, LIsinopril, Norvasc, Sulfa Drugs The patient's Home Medications are listed below: THE FOLLOWING MEDICATIONS NEED TO BE RECONCILED: Albuterol MDI 2 puffs Qid, last dose: 1400 Belladonna oral Diltiazem HCl Oral 180 mg, daily LORazepam Oral 1 mg, at bedtime, last dose: last nighty Omeprazole Oral 40 mg, daily Prevastatin 1/2 tab daily Singulair Oral, daily Synthroid Oral 50 mcg, daily The source(s) of the original Home Medication information: Not obtained. The following Medications were given to the patient in the Emergency Department: Duoneb [Neb Tx] Neb TX 1 unit dose, administered: 09/13/2016 10:29:00 AM Albuterol [Neb Tx] Neb TX 10 mg, administered: 09/13/2016 10:51:00 AM The following Medications were prescribed to the patient: None.
--- NOTE | 2016-09-16 19:41 | ED MAR SUMMARY ---
..... Medication Administration Record [facility] [address] [place] [address] Patient: LATISHA BARKSDALE I Visit ID: [id number] 71y, F Weight: 90.7 kg Height/Length: 64 in BMI: 34.3 ALLERGIES: Beta blockers-severe weakness , Demerol, LIsinopril, Norvasc, Sulfa Drugs Given 10:29 09/13/2016 Javi Cerna RCallyNCally Medication Administered: DUONEB [NEB TX] (IPRATROPIUM-ALBUTEROL), Dose: 1 unit dose Nebulizer Neb TX. Medication Ordered: DuoNeb Neb Tx 1 unit dose (NOW). Given 10:51 09/13/2016 Javi Cerna RBetsy Medication Administered: ALBUTEROL [NEB TX], Dose: 10 mg Nebulizer Neb TX. Medication Ordered: Albuterol Neb Tx 10 mg (Continuous over an hour).
--- NOTE | 2016-09-16 19:41 | ED DISCHARGE INSTRUCTIONS ---
Patient: LATISHA BARKSDALE I General Instructions [facility] VisitID: [id number] [address] [place] [address] 71y, F Registration Date/Time: 09/13/2016 09/13/2016 10:26 BP: 186/96. HR: 97. RR: 26. O2 saturation: 92%. Vital Signs: have been reviewed. Hypertensive. Heart rate normal. Tachypneic. Oxygen saturation low. Acute exacerbation of COPD. Hypoxia. INSTRUCTIONS Follow-up: The patient was admitted and blood pressure will be managed during the admission. (Electronically signed by Agustin Blancas Dr. 09/13/2016 21:48)
--- NOTE | 2016-09-16 19:41 | ED MAR SUMMARY ---
..... Medication Administration Record [facility] [address] [place] [address] Patient: LATISHA BARKSDALE I Visit ID: [id number] 71y, F Weight: 90.7 kg Height/Length: 64 in BMI: 34.3 ALLERGIES: Beta blockers-severe weakness , Demerol, LIsinopril, Norvasc, Sulfa Drugs Given 10:29 09/13/2016 Javi Cerna RCallyNCally Medication Administered: DUONEB [NEB TX] (IPRATROPIUM-ALBUTEROL), Dose: 1 unit dose Nebulizer Neb TX. Medication Ordered: DuoNeb Neb Tx 1 unit dose (NOW). Given 10:51 09/13/2016 Javi Cerna RBetsy Medication Administered: ALBUTEROL [NEB TX], Dose: 10 mg Nebulizer Neb TX. Medication Ordered: Albuterol Neb Tx 10 mg (Continuous over an hour).
--- NOTE | 2016-09-16 19:41 | ED DISCHARGE INSTRUCTIONS ---
Patient: LATISHA BARKSDALE I General Instructions [facility] VisitID: [id number] [address] [place] [address] 71y, F Registration Date/Time: 09/13/2016 09/13/2016 10:26 BP: 186/96. HR: 97. RR: 26. O2 saturation: 92%. Vital Signs: have been reviewed. Hypertensive. Heart rate normal. Tachypneic. Oxygen saturation low. Acute exacerbation of COPD. Hypoxia. INSTRUCTIONS Follow-up: The patient was admitted and blood pressure will be managed during the admission. (Electronically signed by Agustin Blancas Dr. 09/13/2016 21:48)
[2016-09-17 01:36] VITALS: BP 139/78
[2016-09-17 04:16] VITALS: BP 165/86
[2016-09-17 06:42] VITALS: BP 142/62
--- NOTE | 2016-09-17 07:58 | Progress Note ---
Subjective General Note Date: September 17, 2016 Admission Date: September 13, 2016 Hospital Day: 5 PCP: Robert García M.D. Status: Inpatient Advanced Directive: FULL CODE Room: 304 Brief History: The patient is a 71-year-old white female with a significant past medical history of COPD who presented to [facility] emergency department on the day of admission secondary to complaints of shortness of breath. [facility] ER evaluation was consistent with exacerbation of COPD with hypercapnic respiratory failure. Secondary to the above, the patient was admitted by Gerry Dean M.D. for further evaluation and treatment. For other history present illness, past medical history, family history, social history, review of systems, and admission physical examination please see the patient's history and physical examination and ER visit note in the patient's medical record. Subjective: The patient is somewhat more alert today. Mental status improved over the past 24 hours. Less agitation. Patient off benzodiazepines. Remains short of breath with exertion Patient requests: None Medications and Allergies Medications Current Medications Sig/Tana Start time Last Medication Dose Route Stop Time Status Admin Levothyroxine Sodium 25 MCG 0600 09/17 0600 AC 09/17 PO 0539 Sodium Chloride 1,000 ML ASDIRECTED 09/16 1845 AC IV Budesonide 0.5 MG RTBID 09/16 1315 AC 09/17 IN 0741 Ondansetron HCl 4 MG Q4H PRN 09/16 1315 CAN PO Promethazine HCl 25 MG Q6H PRN 09/16 1315 CAN GA Pantoprazole Sodium 40 MG DAILY@0600 09/16 0600 AC 09/17 Sesquihydrate PO 0539 Diltiazem HCl 180 MG BID 09/14 2100 AC 09/16 PO 2008 Enoxaparin Sodium 60 MG BID 09/14 2100 AC 09/16 SC 1000 Diltiazem HCl 10 MG Q2H PRN 09/14 1845 AC 09/16 IV 2321 Atorvastatin Calcium 20 MG QPM 09/14 1800 AC 09/16 PO 1724 Quetiapine Fumarate 25 MG BID 09/14 0900 AC 09/16 PO 2007 Montelukast Sodium 10 MG DAILY 09/13 1828 AC 09/16 PO 1000 Acetaminophen 650 MG Q4H PRN 09/13 1515 AC PO Al Hydrox/Mg Hydrox/ 15 ML Q1H PRN 09/13 1515 AC Simethicone PO Atropine Sulfate 0.5 MG Q3MIN PRN 09/13 1515 AC IV Lidocaine HCl See Dose ONCE PRN 09/13 1515 AC Insts (1) IV Magnesium Hydroxide 10 ML DAILY PRN 09/13 1515 AC PO Morphine Sulfate 2 MG Q3M PRN 09/13 1515 AC IV Nitroglycerin 0.4 MG Q5M PRN 09/13 1515 AC SL Ondansetron HCl 4 MG Q6H PRN 09/13 1515 AC 09/16 IV 1430 Albuterol Sulfate 2.5 MG RTQ3H PRN 09/13 1500 AC 09/16 IN 0533 Albuterol/Ipratropium 3 ML RTQ6H 09/13 1500 AC 09/17 IN 0741 Dose Instructions: (1)Lidocaine HCl: 1.5 MG/KG Allergies Coded Allergies: Lisinopril (Severe, ANAPHYLAXIS 09/13/16) Amlodipine (From Norvasc) (Intermediate, PT EXPERIENCED WEAKNESS, TOLERATED IV DILTIAZEM TEST DOSE 09/13/16) Prednisone (Intermediate, HIGH BLOOD PRESSURE 09/13/16) Meperidine (From DEMEROL HCL) (09/13/16) Sulfa Antibiotics (09/13/16) Beta Adrenergic Blockers (Intermediate, LETHARGY 09/13/16) Physical Exam Vital Signs / I&Os Vital Signs Date Time Temp Pulse Resp B/P Pulse O2 O2 Flow FiO2 Ox Delivery Rate 09/17 0742 2.0 09/17 0642 98.2 106 20 142/62 97 Nasal 2.0 Cannula 09/17 0416 98.2 105 25 165/86 92 Nasal 2.0 Cannula 09/17 0136 97.9 80 24 139/78 94 Nasal 2.0 Cannula 09/16 2030 Nasal 2.0 Cannula 09/16 1950 2.0 09/16 1819 97.9 103 22 112/65 96 Nasal 2.0 Cannula 09/16 1426 97.9 114 16 156/89 96 Nasal 2.0 Cannula 09/16 1346 2.0 09/16 1036 97.9 110 24 169/91 98 Nasal 2.0 Cannula 09/16 0926 2.0 09/16 0810 Nasal 2.0 Cannula I&O 09/17 0000 09/16 1600 09/16 0800 Intake Total 100 551 Output Total 071 405 5229 Balance -350 -726 -3080 General Appearance Cooperative, No acute distress, slightly lethargic. Answers questions appropriately Lungs Decreased breath sounds bilaterally. Scattered rhonchi. Bilateral expiratory wheezes slightly improved Cardiovascular Normal S1 and S2, irregular rhythm, mild tachycardia Abdomen Normal bowel sounds, Soft, No tenderness Extremities No cyanosis, No clubbing, No edema Neurological Cranial nerves intact, No lateralizing signs Psych/Mental Status Confused, slightly lethargic LAB Results Laboratory Tests 09/17 0440 Chemistry Plasma Sodium (136 - 145 mmol/L) 146 Plasma Potassium (3.5 - 5.1 mmol/L) 4.0 Plasma Chloride (98 - 107 mmol/L) 107 CO2 (Enzymatic) (21 - 32 mmol/L) 37 BUN (7 - 18 mg/dL) 20 Creatinine (0.6 - 1.3 mg/dL) 0.9 Est GFR ( Amer) (mL/min) >60 Est GFR (Non-Af Amer) (mL/min) >60 Glucose (70 - 110 mg/dL) 103 Plasma Calcium (8.5 - 10.1 mg/dL) 8.5 Hematology WBC (4.5 - 11.5 K/uL) 6.9 RBC (4.00 - 5.20 M/uL) 4.61 Hgb (12.0 - 16.0 gm/dL) 12.8 Hct (36.0 - 46.0 %) 40.5 MCV (80 - 100 fL) 88 MCH (26 - 34 pg) 28 RDW (11.6 - 14.8 %) 14.8 Neut % (Auto) (50 - 75 %) Pending Lymph % (Auto) (25 - 40 %) Pending Morgan % (Auto) (3 - 14 %) Pending Band Neutrophils % (0 - 8 %) Pending Plt Count, EDTA (150 - 400 K/uL) 172 PUBS MCHC (31 - 37 g/dL) 32 Assessment and Plan Problem List 1. COPD exacerbation Status Chronic Onset Date Unknown Plan -Stable to slightly improved -Continue DuoNeb, albuterol, and Pulmicort -Prednisone discontinued secondary to mental status changes. -Monitor -O2 sats good on 2 L/m nasal cannula 2. Hypothyroidism Status Chronic Onset Date Unknown Plan -Continue Synthroid 0.025 mg by mouth daily -Monitor 3. Paroxysmal atrial fibrillation Status Acute Onset Date Unknown Plan -Heart rate slightly elevated on Cardizem CD 180 by mouth twice a day -We'll add low-dose beta saleem in the form of Lopressor 12.5 mg by mouth every 8 hours monitor for bronchospasm -Echocardiogram obtained showing no significant left ventricular dysfunction. Possible aortic stenosis but study was inadequate to completely assess 4. Hypercapnic respiratory failure Status Acute Onset Date 09/13/16 Plan -Slowly improving -Continue present therapy -See above 5. Mental status change Status Acute Onset Date 09/13/16 Plan -Improved -Benzodiazepines discontinued -Corticosteroids discontinued -Monitor 6. Chronic anticoagulation Status Chronic Onset Date Unknown Plan -Patient remains on Lovenox -Switch to xarelto at discharge Current status: Fair, improved Anticipated discharge date: Anticipated discharge 2-3 days [facility]ticipated [facility] Patient care time: Time spent in chart review, patient interview, physical exam, CPOE, and care documentation: 25 minutes Visit to patient today: 1 Complexity of care: Moderate E&M Codes Rounding: Inpt-Moderate/[id number]
[2016-09-17 11:19] VITALS: BP 129/59
--- NOTE | 2016-09-17 13:00 | NUR ---
pt sitting in chair upon entering room. pt agreeable to skilled PT intervention. pt completed sit to stand Min A using a w/c. pt ambulated 150ft CGA->Min A pushing w/c with O2 maintaining 95%. pt needed to use BR but unable to get to the toilet in time. pt A to toilet and left with staff forester for franki care. pt continues to be recommended to d/c to SNF with PT to further progress mobility.
--- NOTE | 2016-09-17 13:44 | NUR ---
PT OOB AND AMBULATING THE HALLS WITH PT PUSHING A W/C AND DID WELL EXCEPT FOR SHE HAD EXPLOSIVE DIARRHEA IN THE BR. PT LAMONT WAS IN THE ROOM SO SHE APPEARED COOPERATIVE AND ORIENTED TO PLACE AND TIME AT THE PRESENT
[2016-09-17 14:27] VITALS: BP 130/69
--- NOTE | 2016-09-17 15:16 | NUR ---
NUTRITION FOLLOW UP NOTE: Pt continues with minimial po intake. Stimulation diet in place. Eating ~0-50%. More alert today per observation. Rec boost when pt able to take liquids safely. RD to continue to monitor nutrition indices and follow up prn/protocol.
--- NOTE | 2016-09-17 16:00 | NUR ---
PT HAS PERIODS OF BEING ORIENTED AND THEN THERE ARE TIMES WHEN SHE DISORIENTED TO PLACE AND TIME. PT LS ARE COARSE WITH EXP WHEEZES THROUGHOUT. WHEN OFF THE 02 PT WILL DESAT TO 86 % HR HAS BEEN UP TO THE 120'S WHEN OOB DR. WAGNER WAS NOTIFIED.
--- NOTE | 2016-09-17 16:44 | DIAGNOSTIC IMAGING REPORT ---
REFERRING PHYSICIAN/PROVIDER: Gerry Dean MD CONSULTING GOVERNMENT INSTRUCTOR: Prince Maldonado Jr MD PROCEDURE: M-mode 2D echocardiography with spectral and color flow Doppler TECHNICAL QUALITY: The study quality was technically difficult since the patient was unable to lie still. Limited images were obtained. INDICATION: CHF, ATRIAL FIBRILATION RHYTHM DURING PROCEDURE: The patient was in atrial fibrillation with heart rates between 100-115 beats per minute. INTERPRETATIONS: LEFT VENTRICLE: The left ventricle is grossly normal size. There is mild to moderate concentric left ventricular hypertrophy. The interventricular septum is measured at 1.5 cm and the left ventricular posterior wall was measured at 1.1 cm both were measured during end diastole. Overall the left ventricular systolic function is preserved. Regional wall motion abnormalities cannot be fully excluded due to limited images. Diastolic function could not be accurately assessed due to atrial fibrillation. RIGHT VENTRICLE: The right ventricle is grossly normal in size and function. ATRIA: Not well visualized. MITRAL VALVE: There is mild mitral annular calcification. The mitral valve leaflets appear borderline thickened but open well. There is trace mitral regurgitation. AORTIC VALVE: The aortic valve is not well visualized but appears to be moderately calcified with reduced leaflet mobility. Cannot fully assess for severity of aortic stenosis due to limited images. TRICUSPID VALVE: The tricuspid valve is normal in structure and function. There is trace or physiologic amount of tricuspid regurgitation. PULMONIC VALVE: The pulmonic valve is not well visualized. GREAT VESSELS: The aorta root is mildly dilated at 4.0 cm. The ascending aorta cannot be visualized. IMPRESSION: 1. The LV is grossly normal in size with mild to moderate concentric left ventricular hypertrophy and normal LV systolic function. Cannot assess for diastolic dysfunction due to atrial fibrillation. 2. Cannot exclude significant aortic stenosis due to limited images. 3. Mildly dilated aortic root.
[2016-09-17 18:15] VITALS: BP 131/75
--- NOTE | 2016-09-18 00:30 | NUR ---
PT HAS BEEN ANXIOUS, IMPULSIVE, AND CONFUSED SINCE START OF SHIFT AT 1900. PT WAS GIVEN HER 25MG PO SEROQUEL AT 2030 AND 1MG PO RISPERIDAL. PT TALKED WITH HER ROOMMATE AND WAS CALM AND ORIENTED FOR ABOUT AN HOUR. THEN PT RESUMED HER DELUSIONAL THINKING. ASKING TO LEAVE REPEATEDLY AND ATTEMPTING OT PUT ON HER CLOSTHES. PT'S HR WHEN SHE IS AGGITATIED IS 115-140 AFIB. PT WAS GIVEN HER PO DILT 180MH EARLY WEL. PT HAS BEEN REPEATEDLY REORIENTED AND STAFF HAS TRIED TALKING AND SITTING WITH HER FOR PROLONGED PERIODS OF TIME. SHE IS INSISTANT THAT SHE WANTS TO CALL THE FIRE DEPARTMENT AND SHE IS REQUESTING TO BE MOVED TO THE 3RD FLOOR OF THE HOSPITAL. (PT IS IN ROOM 304.) HR CONTINUED TO STAY ELEVATED 120-140. 10MG DILT IV PUSH WAS GIVEN TWICE IN 2HRS AND METOPROLOL PO WAS GIVEN EARLY WITH NO USEFUL EFFECT. MD WAS NOTIFIED AT 0015 OF PROLONGED HR WITH ANXIETY AND AGITATION. AN ADDITIONAL 12.5MG OF PO METOPROLOL AND ADDITIONAL DOSE OF 25MG PO SEROQUEL WAS GIVEN. PT IS MORE CALM BUT STILL VERY CONFUSED.
[2016-09-18 01:23] VITALS: BP 106/63
[2016-09-18 02:33] VITALS: BP 132/76
[2016-09-18 06:31] VITALS: BP 140/78
--- NOTE | 2016-09-18 10:24 | Progress Note ---
Subjective General pt. continues to be tachycardic and to have chest congestion and marked confusion and sleeplessness. Nursing staff concerned that pt. has slept and that she has taken lorazepam for years. Constitutional Denies: Other. Other ROS remarkable for confusion Restlessness, no chest pain slight dyspnea insomnia.Otherwise OK. Physical Exam Vital Signs / I&Os Vital Signs Date Time Temp Pulse Resp B/P Pulse O2 O2 Flow FiO2 Ox Delivery Rate 09/18 07 2.0 09/18 06 97.5 110 29 140/78 94 Nasal 2.0 Cannula 09/18 0233 98.1 99 24 132/76 96 Nasal 2.0 Cannula 09/18 0123 49 20 106/63 96 Nasal 2.0 Cannula 09/17 2013 2.0 09/17 1999 Nasal 2.0 Cannula 09/17 1815 97.7 102 14 131/75 97 Nasal 2.0 Cannula 09/17 1427 97.7 102 21 130/69 98 Nasal 2.0 Cannula 09/17 1321 2.0 09/17 1119 97.0 102 21 129/59 95 Nasal 2.0 Cannula I&O 09/17 0800 09/17 1600 09/18 0000 Intake Total 499 241 4485 Output Total 388 150 Balance 31 -30 1226 General Appearance Alert, confused with inappropriate rsonses to questions, impulsive behaviior Lungs bilat faint inspriatory rales and faint expir. wheezes Cardiovascular irreg irreg rhythm. No distinct M. Abdomen Normal bowel sounds, Soft, No tenderness Extremities trace lower extremity edema Neurological alertr confused fairly steady gait, no lateralizing signs. Psych/Mental Status Confused LAB Results Microbiology Date/Time Procedure - Status Source Growth 09/17 1828 Clostridium difficile Toxin A & B - CAN STOOL Cancelled: Cancelled via OE: WRONG PT 09/17 1828 Specimen Source - CAN STOOL Cancelled: Cancelled via OE: WRONG PT Assessment and Plan Problem List 1. Atrial fibrillation with rapid ventricular response Plan On diltiazem and metoprolol. May benefit from adding digoxin. 2. COPD with acute exacerbation Plan Still wheezy. Continue nebs and budesonide. 3. Mental status change Status Acute Onset Date 09/13/16 Plan Pt. continues to be restless. It may be helpful to restart lorazepam. E&M Codes Rounding: Inpt-Moderate/[id number]
[2016-09-18 10:54] VITALS: BP 92/56
--- NOTE | 2016-09-18 17:00 | NUR ---
PT HAS BEEN SO AGITATED AND UNABLE TO SLEEP OR RELAX TO SIT FOR ANY AMOUNT OF TIME. HER ROOMATE WAS HERE AND SPOKE WITH DC PLANNING AND AGREED TO TAKE HER HOME TOMORROW. DC PLANNING TO ORDER A WALKER ALONG WITH HOME HEALTH CARE. PT 02 SATS CHECKED ON ROOMAIR IN SEMI FOWLERS WAS 92% WILL CHECK AFTER AMBULATION.
[2016-09-18 17:01] VITALS: BP 158/86
--- NOTE | 2016-09-18 20:45 | NUR ---
AT START OF SHIFT PT WAS SITTING UP IN CHAIR IN HALLWAY, IN VIEW OF HOSPITAL STAFF. PT WAS ABLE TO FOLLOW SIMPLE INSTRUCTIONS. PEDAL ASSEMBLER TOOK PATIENT BACK TO BED AROUND 2019. PT WAS ABLE TO WALK BACK TO BED. RN PERFORMED ASSESSMENT. PT WAS CONFUSED, AND ORIENTED TO SELF ONLY. PT WAS NOT ABLE TO FOLLOW MOST COMMANDS GIVEN BY RN. WHEN RN ASKED THE PATIENT WHERE SHE WAS, PT STATED HE , AND HER ADDRESS. PT NEED FREQUENT PROMPTING WHEN ASKED TO HOLD OUT HANDS, AND TAKE DEEP BREATHS. PT DENIED ANY CHEST PAIN, NAUSEA, AND VOMITING. PT STATED THAT SHE HAD SOB WITH ACTIVITY, AND NOT AT REST. PT ALLOWED RN TO PLACE OXYGEN ON HER. OXYGEN AT 2 LPM VIA NC, WITH O2 SAT OF 98%, TURNED DOWN TO 1 LPM. PT HAS BILT HAND BRUISES. PT IS ON TELE, HR IS IN THE UPPER 90'S TO LOW 100'S. PT HAS NO IV SITE AT THIS TIME. PT TOOK HS PILLS WITH WATER, WITHOUT ISSUE. WARM BLANKET PROVIDED, BED IN LOWEST POSITION, CALL LIGHT IN REACH, BED ALARM IS ON. WCTM.
--- NOTE | 2016-09-18 22:45 | NUR ---
PT AWAKE AND TAKEN TO BR. PT SITTING UP AT SIDE OF BED. RN ATTEMPTED TO ADMINISTER 2200 METOPROLOL. PT SLAPPED MED CUP OUT OF RN HANDS. PT BACK TO BED. RN WAITED TO SEE IF PATIENT WOULD TAKE MEDICATION AFTER GETTING SETTLED IN BED. RN ASKED PATIENT IF SHE WOULD TAKE HER METOPROLOL NOW, AND PT RESPONDED, " YES." RN GAVE MEDICATION TO PATIENT, AND PT TOOK A SIP OF WATER. PT SIP OUT PILL, AND LANDED ON GOWN. RN GAVE PILL TO PATIENT AGAIN, AND PATIENT SIT IT OUT. PT ATTEMPTING TO GET UP OUT OF BED WITH OUT ASSISTANCE, WITH EYES CLOSED. PT WILL NOT ANSWER RN'S QUESTIONS. PT SCRATCHED A STAFF MEMBER WHILE PROVIDING CARE. WHILE ASSISTING THE PATIENT WHILE PATIENT WAS GETTING OUT OF BED, PT WAS GRABBING AT STAFF, AND THROWING BLANKETS ON THE FLOOR. DR. WAGNER PAGED AT 2024 AND RETURNED CALL AT 2026. INFORMED THAT OF PATIENTS CURRENT BEHAVIOR TOWARDS STAFF, INCREASED HR OF 130'S, THAT PATIENT DOES NOT HAVE IV ACCESS AT THIS TIME, AND THAT PT DID NOT TAKE HER 2200 DOSE OF METOPROLOL. MD ORDERED TO GIVE 5 MG HALDOL IM NOW X1 DOSE, AND TO SEE HOW THAT AFFECTS PT'S HEART RATE AND BEHAVIOR AND HOPEFULLY GET PATIENT BACK ON PO METOPROLOL. ORDER READ BACK, AND WRITTEN IN CHART. RN MANUAL LATHE MACHINIST INFORMED ON PLAN FOR PATIENT. PT GIVEN 5 MG OF HALDOL IM IN LEFT THIGH BY SHIFT SUP, PT TOLERATED WELL. PT RESTING IN BED. BED IN LOWEST POSITION, CALL LIGHT IN REACH, WCTM.
[2016-09-18 23:22] VITALS: BP 145/63
--- NOTE | 2016-09-19 00:12 | NUR ---
PT STILL RESTLESS, AND TRYING TO GET OUT OF BED WITHOUT ASSISTANCE. PT GRABBING AT STAFF, AND THROWING BLANKETS AT RN'S. PT TAKES OFF OXYGEN, AND REFUSES TO HAVE RN PLACE OXYGEN BACK ON. PT ASSISTED OUT OF BED, AND TAKEN TO BR, AND THEN WALKED TO CHAIR IN HALLWAY. PT GIVEN WARM BLANKET AND CHAIR ALARM PLACED. HR ELEVATED ON THE 110'S-130'S WHEN PATIENT IS MOVING. WCTM.
--- NOTE | 2016-09-19 01:45 | NUR ---
PT BACK TO BED @ 0100. 2 PERSON ASSIST NEEDED. PT GIVEN WARM BLANKET, AND ALLOWED RN TO PLACE O2 ON AND PULSE OX PROBE. BED ALARM IS ON. PT IS STILL CONFUSED AND UNABLE TO FOLLOW COMMANDS. PT STATED, " CALL THE LIVING ADVISOR." PT HAS BEEN ASLEEP FOR ABOUT 45MINS. BED IN LOWEST POSITION, CALL LIGHT IN REACH, WCTM.
--- NOTE | 2016-09-19 03:59 | NUR ---
DR WAGNER UPDATE ON PATIENT STATUS VIA PHONE. INFORMED THAT PATIENT HAS BEEN ALSEEP FOR A FEW HOURS, AND HR IS IN THE 80'S. ALSO CLARIFIED IF MY WOULD LIKE RN TO HOLD ATIVAN THIS AM. STATED TO GIVE AM MEDS IF ABLE TOO. NO OTHER ORDERS GIVEN. BED IN LOWEST POSITION, CALL LIGHT IN REACH, BED ALARM IS ON. TM
[2016-09-19] MEDS ORDERED: LOPRESSOR25 MG PO (08:25)
[2016-09-19] MEDS ORDERED: LANOXIN0.25 MG PO (08:29)
[2016-09-19] MEDS ORDERED: SEROQUEL25 MG PO (08:30)
--- NOTE | 2016-09-19 08:33 | Discharge Summary ---
Discharge Summary Report Admit Date 09/13/16 Discharge Date 09/19/16 Admission Diagnosis COPD, Afib RVR; hypothyroid, MS chagnes, anticoagulation Discharge Diagnosis COPD, Afib RVR; hypothyroid, MS breen, anticoagulation Brief History The patient is a 71-year-old white female with a significant past medical history of COPD who presented to [facility] emergency department on the day of admission secondary to complaints of shortness of breath. [facility] ER evaluation was consistent with exacerbation of COPD with hypercapnic respiratory failure. Secondary to the above, the patient was admitted by Gerry Dean M.D. for further evaluation and treatment. Hospital Course COPD-Improved on RA at this time Afib RVR- increase on ca ch saleem hypothyroid- on meds stable MS breen-While in the hospital she had improvement in her breathing but lots of anxiety and difficulty with MS changes. Has been with difficulty wtih sleep. ? if some medication issues with benzos increasing confusion. Has seroquil that was increased. anticoagulation- Has not been on anything prior. General Appearance Alert, Cooperative, bp 145/63 HR 100 RR20 98%sat 2L HEENT Atraumatic Lungs Clear to auscultation, Normal air movement Cardiovascular Regular Rate Abdomen Soft, No tenderness Skin No Rashes Psych/Mental Status confused, sleepy Lab/Imaging Laboratory Tests 09/19 0709 Toxicology Digoxin (0.9 - 2.0 ng/mL) 0.3 Discharge Instructions/Meds Patient to have follow up with her PMD in the next 1-2 weeks. Continue meds from hospital for afib until f/u and consider anticoagulation. Has confusion and behavior issues and may continue seroquil or wean with PMD
--- NOTE | 2016-09-19 08:33 | Discharge Summary ---
Discharge Summary Report Admit Date 09/13/16 Discharge Date 09/19/16 Admission Diagnosis COPD, Afib RVR; hypothyroid, MS chagnes, anticoagulation Discharge Diagnosis COPD, Afib RVR; hypothyroid, MS breen, anticoagulation Brief History The patient is a 71-year-old white female with a significant past medical history of COPD who presented to [facility] emergency department on the day of admission secondary to complaints of shortness of breath. [facility] ER evaluation was consistent with exacerbation of COPD with hypercapnic respiratory failure. Secondary to the above, the patient was admitted by Gerry Dean M.D. for further evaluation and treatment. Hospital Course COPD-Improved on RA at this time Afib RVR- increase on ca ch saleem hypothyroid- on meds stable MS breen-While in the hospital she had improvement in her breathing but lots of anxiety and difficulty with MS changes. Has been with difficulty wtih sleep. ? if some medication issues with benzos increasing confusion. Has seroquil that was increased. anticoagulation- Has not been on anything prior. General Appearance Alert, Cooperative, bp 145/63 HR 100 RR20 98%sat 2L HEENT Atraumatic Lungs Clear to auscultation, Normal air movement Cardiovascular Regular Rate Abdomen Soft, No tenderness Skin No Rashes Psych/Mental Status confused, sleepy Lab/Imaging Laboratory Tests 09/19 0709 Toxicology Digoxin (0.9 - 2.0 ng/mL) 0.3 Discharge Instructions/Meds Patient to have follow up with her PMD in the next 1-2 weeks. Continue meds from hospital for afib until f/u and consider anticoagulation. Has confusion and behavior issues and may continue seroquil or wean with PMD
--- NOTE | 2016-09-19 12:29 | Provider's Discharge Care Plan ---
Problem, Goal, Plan Problem List 1. Atrial fibrillation with rapid ventricular response Instructions: Follow up as directed, Take meds as directed, DISCUSS WTIH PMD ANTICOAG 2. Hypertension Instructions: Take meds as directed 3. ASTHMA Instructions: Take meds as directed 4. COPD with acute exacerbation 5. Mental status change Instructions: HAS HIGHER DOSE ON SEROQUIL
--- NOTE | 2016-09-19 13:00 | NUR ---
PT AND HER ROOM-MATE WERE GIVEN HER DC INSTRUCTIONS BUT THE PT WAS SO DROWSY THAT SHE DID NOT APPEAR TO UNDERSTAND ANY OF THE DIRECTIONS. PT WAS GIVEN DIGOXIN AND HER METROPOLOL PRIOR TO DC HOME. HOMEHEALTH AND A WALKER WAS ORDERED PER DC PLANNING BUT OXYGEN WAS NOT DUE TO PT'S SATS MAINTAINED AT 92 TO 93 % ON ROOM AIR. PT TRANSFERRED IN A W/C TO A PRIVATE VEHICLE.
== END 2016-09-19 13:45 | disposition home or self-care (01) | DRG 190 ==
LOC: ED SRH 10:24 → TRANS SRH 12:49 → CC SRH 14:30
PROVIDERS: ADMIT Internal Medicine
DX: J44.1 Chronic obstructive pulmonary disease with (acute) exacerbation (principal); J96.02 Acute respiratory failure with hypercapnia; I48.0 Paroxysmal atrial fibrillation; R41.0 Disorientation, unspecified; Z79.01 Long term (current) use of anticoagulants; E03.9 Hypothyroidism, unspecified; I10 Essential (primary) hypertension; Z78.1 Physical restraint status
CPT/HCPCS: 20011; 85241; 85244; 90047; 90074; 90616; 90648; 91023; 91295; 91320; 92132; 92720; 93020; 95059; 95061